=== PATIENT | female | born 1975 | race Asian ===

== ENCOUNTER 2016-07-29 16:14 | Emergency (ER) | payer OTHER ==
[2016-07-29 16:20] VITALS: BP 120/83; PULSE 88; TEMP 98.2; BMI 24.5
--- NOTE | 2016-07-29 16:22 | PDOC ---
Rapid Medical Evaluation Chief Complaint: Pain Time Seen by Provider: 07/29/16 16:18 Medical Evaluation: Allergies Allergy/AdvReac Type Severity Reaction Status Date / Time No Known Drug Allergies Allergy Verified 07/29/16 16:17 Vital Signs Temp Pulse Resp BP Pulse Ox 98.2 F 88 18 120/83 100 07/29/16 16:18 07/29/16 16:18 07/29/16 16:18 07/29/16 16:18 07/29/16 16:18 07/29/16 16:21 RME Note: I have performed a brief, in-person evaluation of this patient . This patient presents with CC: abd pain Pertinent PE findings are:; VSS I have ordered: labs The patient will proceed to ED for further evaluation. JR
--- NOTE | 2016-07-29 17:21 | PDOC ---
[id number] - General Chief Complaint: Pain Stated Complaint: ABD PAIN Time Seen by Provider: 07/29/16 16:18 Past History - Past Medical History Anemia: No Asthma: No Cancer: No Cardiac Disorders: No CVA: No COPD: No CHF: No Dementia: No Diabetes: No GI Disorders: Yes (fistula SBO) Disorders: No HTN: No Hypercholesterolemia: No Liver Disease: No Suicide Attempt (Hx): No Seizures: No Thyroid Disease: No - Surgical History Abdominal Surgery: Yes (? UNSURE FOR SBO) Appendectomy: No Cardiac Surgery: No Cholecystectomy: No Lung Surgery: No Neurologic Surgery: No Orthopedic Surgery: No - Reproductive History Is Patient Now?: No (#): 4 Para: 1 Spontaneous : 3 - Immunization History Immunization Up to Date: Yes - Psycho/Social/Smoking Cessation Hx Anxiety: No Suicidal Ideation: No Smoking Status: No Smoking History: Never smoked Have you smoked in the past 12 months: No Number of Cigarettes Smoked Daily: 0 Information on smoking cessation initiated: No Hx Alcohol Use: No Drug/Substance Use Hx: No Substance Use Type: None Hx Substance Use Treatment: No <Maryann Hess - Last Filed: 08/05/16 18:40> <Kapil Sam - Last Filed: 08/06/16 09:07> - Past Medical History Allergies/Adverse Reactions: Allergies Allergy/AdvReac Type Severity Reaction Status Date / Time No Known Drug Allergies Allergy Verified 07/29/16 16:17 Home Medications: Ambulatory Orders Medroxyprogesterone Acetate 2.5 mg PO HS 07/29/16 Abd/GI Specific PMHX - Complaint Specific PMHX GERD: No GI Ulcer Disease: No <Maryann Hess - Last Filed: 08/05/16 18:40> *Physical Exam - Vital Signs Last Vital Signs Temp Pulse Resp BP Pulse Ox 98.2 F 88 18 120/83 100 07/29/16 16:18 07/29/16 16:18 07/29/16 16:18 07/29/16 16:18 07/29/16 16:18 - Physical Exam General Appearance: Yes: Appropriately Dressed. No: Apparent Distress HEENT: positive: Normal Voice Neck: positive: Supple Respiratory/Chest: negative: Respiratory Distress Gastrointestinal/Abdominal: positive: Normal Bowel Sounds, Tender (to LUQ/LLQ and L lower back), Soft. negative: Distended, Guarding, Rebound Musculoskeletal: negative: CVA Tenderness Integumentary: positive: Dry, Warm Neurologic: positive: Fully Oriented, Alert, Normal Mood/Affect <Maryann Hess - Last Filed: 08/05/16 18:40> - Vital Signs Last Vital Signs Temp Pulse Resp BP Pulse Ox 98.2 F 88 18 120/83 100 07/29/16 16:18 07/29/16 16:18 07/29/16 16:18 07/29/16 16:18 07/29/16 16:18 <Kapil Sam - Last Filed: 08/06/16 09:07> ED Treatment Course - LABORATORY CBC & Chemistry Diagram: 07/29/16 17:10 07/29/16 17:10 - RADIOLOGY Radiology Studies Ordered: Category Date Time Status ABDOMEN & PELVIS CT WITH CONTR [CT] Stat CT Scan 07/29/16 17:13 Ordered <Maryann Hess - Last Filed: 08/05/16 18:40> - LABORATORY CBC & Chemistry Diagram: 07/29/16 17:10 07/29/16 17:10 - ADDITIONAL ORDERS Additional order review: 07/29/16 17:10 RBC 4.33 MCV 85.8 MCHC 34.5 RDW 13.8 MPV 8.4 Neutrophils % 62.8 Lymphocytes % 25.0 Monocytes % 6.4 Eosinophils % 4.8 H D Basophils % 1.0 - Medications Given in the ED: ED Medications Discontinued Medications Generic Name Dose Route Start Last Admin Trade Name Beverly PRN Reason Stop Dose Admin Morphine Sulfate 2 mg 07/29/16 17:32 07/29/16 17:38 Morphine Injection - IVPUSH 07/29/16 17:33 2 mg ONCE ONE Administration <Kapil Sam - Last Filed: 08/06/16 09:07> Medical Decision Making - Medical Decision Making 07/29/16 17:14 40 yo F, s/p bowel perf during ectopic surgery in 2011 at [facility], no issues to date, currently on medroxyprogesterone for irreg menses per pt, was told she was not in menopause by 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 States pain located to left upper and lower quadrant and also left lower back. Describes pain as sharp and mostly constant with intensity of 8/10, minimally relief with Tylenol. States she noticed pain after staring medroxyprogesterone 3days ago. Denies change in bowel movements, dysuria, hematuria, nausea, vomiting, fever or chills. No history of similar pain. See exam L sided abd pain Started after new meds for irreg menses Stable w/ minimal ttp to multiple sites of abd Pain possibly SE of new meds but given complicated surgery in past, will r/o serious pathology -pain control -labs -CT 07/29/16 17:31 07/29/16 17:32 <Maryann Hess - Last Filed: 08/05/16 18:40> - Medical Decision Making 08/06/16 09:07 The patient was seen and evaluated in conjunction with TRUMAN Bennett under my direct supervision, ancillary studies were reviewed. I agree with the plan as outlined by TRUMAN Hess . <Kapil Sam - Last Filed: 08/06/16 09:07> *DC/Admit/Observation/Transfer <Maryann Hess - Last Filed: 08/05/16 18:40> <Kapil Sam - Last Filed: 08/06/16 09:07> Diagnosis at time of Disposition: Abdominal pain Qualifiers: Abdominal location: left lower quadrant Qualified Code(s): R10.32 - Left lower quadrant pain - Discharge Dispostion Disposition: HOME Condition at time of disposition: Improved - Referrals Referrals: Freddy Alvarenga MD [Staff Physician] - Niki Deleon MD [Primary Care Provider] - - Patient Instructions Printed Discharge Instructions: DI for Abdominal Pain-Adult Additional Instructions: Discharge Instructions: -Your CT scan of your abdomen showed no acute abnormalities. -Take Motrin or tylenol for pain if needed -Follow up with Dr. Deleon and Dr. Alvarenga within 1 week if symptoms continue -Return to the ER with any worsening or concerning symptoms
[2016-07-29 17:23] LABS: EOSINOPHIL 4.8 % (0-4.5); MCH 29.6 pg (25.7-33.7); MCHC 34.5 g/dl (32.0-36.0); MEAN CELL VOLUME 85.8 fl (80-96); MEAN PLT VOLUME 8.4 fl (7.5-11.1); NEUTROPHILS 62.8 % (42.8-82.8); PLATELET COUNT 354 K/MM3 (134-434); RDW 13.8 % (11.6-15.6); WHITE BLOOD COUNT 10.6 K/mm3 (4.0-10.0)
[2016-07-29 17:25] LABS: URINE APPEARANCE SLCLOUDY; URINE BILIRUBIN NEGATIVE (NEGATIVE); URINE BLOOD NEGATIVE (NEGATIVE); URINE COLOR YELLOW; URINE GLUCOSE (UA) NEGATIVE (NEGATIVE); URINE KETONE TRACE (NEGATIVE); URINE NITRITE NEGATIVE (NEGATIVE); URINE PROTEIN NEGATIVE (NEGATIVE); URINE UROBILINOGEN NEGATIVE E.U./dl (0.2-1.0)
[2016-07-29] MEDS ORDERED: morphine CARPU-JECT 4 MG/1 ML DISP.SYRIN IVPUSH ONE (17:32)
[2016-07-29] MEDS ORDERED: morphine CARPU-JECT 2 MG/1 ML DISP.SYRIN ONE (17:35)
[2016-07-29 17:43] LABS: URINE LEUK ESTERASE 1+ (NEGATIVE)
[2016-07-29 17:51] LABS: ALBUMIN 4.2 g/dl (3.4-5.0); ANION GAP 9 (8-16); CALCIUM 9.2 mg/dL (8.5-10.1); CO2 28 mmol/L (21-32); CREATININE 0.9 mg/dL (0.55-1.02); GLUCOSE,RANDOM 106 mg/dL (74-106); SGOT/AST 15 U/L (15-37); SGPT/ALT 30 U/L (12-78)
[2016-07-29 17:53] LABS: ALK PHOS 59 U/L (45-117); BILIRUBIN,TOTAL 0.2 mg/dL (0.2-1.0); TOT PROT 7.6 g/dl (6.4-8.2)
[2016-07-29 17:58] LABS: URINE MUCUS RARE; URINE RBC 2 /hpf (0-3); URINE WBC 13 /hpf (3-5)
--- NOTE | 2016-07-29 19:17 | PDOC ---
[id number]9CnZXLMVQNBYBVNQO1HLVGObQUEEp6jOFYQrvgNGNPMkK RsZQAAeJxztooJKMpPL0 eBlAcjEQhpXM3PGIzWhyfAsoJ3LiJIvnpwJg8aAs1VdcZP4/ MYo7TYI8xOQ85XgTbWEI7NSAyVVIeZRXdnLLO36sQmZLF7ZUJ9IFVyCRMzkmI35XfZGMEWLiKpahC9M0 NGDHWcrpCVmXEjCuP6HPRpFUI7bUPMFQlFsHrISXvX7GW58XxvrkASCBP3Vfv2vJctXNHWyNyZRVH9bE CsWHRHPTuJYptCyvr9g +baV7fDYfCbOkKypI2Eh2NvNvHa0VDfATNsemR3b4J0N3/ pWhVDsL194QSyulZ7aTgX9BtDzNZU7iEqVtUcwi3TFIkcdDVYJVKOVxODDk5p9tlgebVikCSZctm23s9 uK71rNyltqtRCyiqH4ZJvCsrCiqsQcyXcyHwPxQ6ZLz2VSfTn66Ae2u +VCjXrdVSnYqdsMTmHjEpprQMIFSYaj7Isv3LEr2TEtUJAC3N/5UBWM7Fn+ ag4v7wV6uySqNbSt8KLOzTNKHl8rf9pbspXxoYe1lAEXNSIVPhBubDgMUE9kKqaM/o86xEvTT+ Xu9SLZhgoV5XwBb2yRZrKN8vLW3zrfAwjw7gq4h3EfUAPzpZAJ3LBChSxa2p6MGsgf9VMKhSuon7D8zR NPD115hAXaDG7FnLtNHDdB8a81o00xdTmcZgyBrsT0pXLnuU8aEiMLUygvkA4TPtk7Bgtpd4F7b7Ixx KwsjcISDFb26O4b0Mp0ZnyUTyo4lpRF8HPRIFPi3zE+fxxR3qzoZetS0YH3CM43CQn8bw1fwee3k/ v3tIsyRzri6HZTnK1Hl8eZJkwUxUNr8t7qXb6BuN9beWKwLkl31PN/ GlO6CfkTQwztWCz6zkX120L0MqeUfm8rwm7mNjwZYO4P4Kn6iL8h7P/72yyPTfRcvi5APg+ XDjetThzNKOEUg8z+dmdMIMP5TW8214oTFYsNOqQaKP18Zs9phUQpBf0j4PR73/ uWmtWEDItcUEGxzkOOX7hwkPjMGJTAP4LWLSB3tZBWDu4YW+lx8s+J3XSyhh1SwGQ+gP+UR/ SiXRfEYASYDROVN9GjlCtkc== 07/29/16 17:10 - ADDITIONAL ORDERS Additional order review: Laboratory Results 07/29/16 07/29/16 07/29/16 17:10 17:10 17:10 Sodium 139 Potassium 4.2 Chloride 102 Carbon Dioxide 28 Anion Gap 9 BUN 18 D Creatinine 0.9 D Creat Clearance w eGFR > 60 Random Glucose 106 Calcium 9.2 Total Bilirubin 0.2 D AST 15 D ALT 30 D Alkaline Phosphatase 59 Total Protein 7.6 Albumin 4.2 Lipase 185 Urine Color Yellow Urine Appearance Slcloudy Urine pH 5.0 Ur Specific [place] 1.029 Urine Protein Negative Urine Glucose (UA) Negative Urine Ketones Trace H Urine Blood Negative Urine Nitrite Negative Urine Bilirubin Negative Urine Urobilinogen Negative Ur Leukocyte Esterase 1+ H Urine RBC 2 Urine WBC 13 Ur Epithelial Cells Moderate Urine Mucus Rare Urine HCG, Qual Negative 07/29/16 17:10 RBC 4.33 MCV 85.8 MCHC 34.5 RDW 13.8 MPV 8.4 Neutrophils % 62.8 Lymphocytes % 25.0 Monocytes % 6.4 Eosinophils % 4.8 H D Basophils % 1.0 - Medications Given in the ED: ED Medications Discontinued Medications Generic Name Dose Route Start Last Admin Trade Name Freq PRN Reason Stop Dose Admin Morphine Sulfate 2 mg 07/29/16 17:32 07/29/16 17:38 Morphine Injection - IVPUSH 07/29/16 17:33 2 mg ONCE ONE Administration <Pauilne Sawnn - Last Filed: 07/29/16 20:26> - LABORATORY CBC & Chemistry Diagram: 07/29/16 17:10 07/29/16 17:10 - ADDITIONAL ORDERS Additional order review: 07/29/16 17:10 RBC 4.33 MCV 85.8 MCHC 34.5 RDW 13.8 MPV 8.4 Neutrophils % 62.8 Lymphocytes % 25.0 Monocytes % 6.4 Eosinophils % 4.8 H D Basophils % 1.0 - Medications Given in the ED: ED Medications Discontinued Medications Generic Name Dose Route Start Last Admin Trade Name Beverly PRN Reason Stop Dose Admin Morphine Sulfate 2 mg 07/29/16 17:32 07/29/16 17:38 Morphine Injection - IVPUSH 07/29/16 17:33 2 mg ONCE ONE Administration <Kapil Sam - Last Filed: 08/03/16 08:50> Progress Note - Progress Note Progress Note: I have received report from TRUMAN Quintero regarding this patient. Pt's initial chief complaint: left sided abd pain Pt's work up completed prior to sign out: labs, UA, hcg Pt treatment given from prior staff: IV morphine Pt plan to be completed: CT scan abd/pelvis Dispo: Pending <Pauline Swann - Last Filed: 07/29/16 20:26> Medical Decision Making - Medical Decision Making A/P: 40 y/o afebrile female with PMH bowel perf 2012 c/o left sided abd pain. The patient was initially assessed by TRUMAN Quintero. Labs unremarkable. Awaiting CT scan of abd/pelvis. If CT scan is normal will discharge to home. CT scan abd/pelvis IMPRESSION: No evidence of diverticulitis. Appendix not completely visualized. Right ovarian cyst. Left ovary unremarkable. Gave patient her results. Will discharge to home with instructions to take Motrin or tylenol for pain and f/u with her doctor tomorrow. Also gave referral to GI doctor. Pt instructed to return to the ER with any worsening or concerning symptoms. The patient verbalizes understanding of all instructions, has no further questions and is awaiting discharge. <Pauline Swann - Last Filed: 07/29/16 20:26> - Medical Decision Making The patient was seen and evaluated in conjunction with TRUMAN Swann under my direct supervision, ancillary studies were reviewed. I agree with the plan as outlined by TRUMAN Swann . <Kapil Sam - Last Filed: 08/03/16 08:50> *DC/Admit/Observation/Transfer <Pauline Swann - Last Filed: 07/29/16 20:26> <Kapil Sam - Last Filed: 08/03/16 08:50> Diagnosis at time of Disposition: Abdominal pain Qualifiers: Abdominal location: left lower quadrant Qualified Code(s): R10.32 - Left lower quadrant pain - Discharge Dispostion Disposition: HOME Condition at time of disposition: Improved - Referrals Referrals: Niki Deleon MD [Primary Care Provider] - Freddy Alvarenga MD [Staff Physician] - - Patient Instructions Printed Discharge Instructions: DI for Abdominal Pain-Adult Additional Instructions: Discharge Instructions: -Your CT scan of your abdomen showed no acute abnormalities. -Take Motrin or tylenol for pain if needed -Follow up with Dr. Deleon and Dr. Alvarenga within 1 week if symptoms continue -Return to the ER with any worsening or concerning symptoms
== END 2016-07-29 20:51 | disposition home or self-care (01) ==
LOC: JER 16:14
PROC: 3E033NZ Introduction of Analgesics, Hypnotics, Sedatives into Peripheral Vein, Percutaneous Approach (ICD-10-PCS; principal; 2016-07-29)
DX: R10.32 Left lower quadrant pain (principal); N92.5 Other specified irregular menstruation
CPT/HCPCS: 36415; 74177-TC; 80053; 81003; 81015; 83690; 84703; 85025; 96374; 99285-25

== ENCOUNTER 2017-06-11 15:26 | Emergency (ER) | payer OTHER ==
[2017-06-11 15:32] VITALS: BP 122/100; PULSE 86; TEMP 98.3; BMI 24.9
--- NOTE | 2017-06-11 15:34 | PDOC ---
Rapid Medical Evaluation Time Seen by Provider: 06/11/17 15:28 Medical Evaluation: Allergies Allergy/AdvReac Type Severity Reaction Status Date / Time No Known Drug Allergies Allergy Verified 07/29/16 16:17 06/11/17 15:28 I have performed a brief in-person evaluation of this patient. The patient presents with a chief complaint of: left flank pain radiating to left abdomen Pertinent physical exam findings: M/S: left CVAT ABD: TTP LLQ I have ordered the following: UA, urine cx, CBC, CMP, upreg The patient will proceed to the ED for further evaluation. Discharge Disposition - Diagnosis Abdominal pain - Referrals Referrals: Niki Deleon MD [Primary Care Provider] - - Patient Instructions - Post Discharge Activity
[2017-06-11 16:13] LABS: BASO % 1.3 % (0-2.0); EOS % 5.9 % (0-4.5); HEMATOCRIT 37.3 % (32.4-45.2); HEMOGLOBIN 12.5 GM/dL (10.7-15.3); LYMPH % 33.1 % (8-40); MCH 28.9 pg (25.7-33.7); MCHC 33.5 g/dl (32.0-36.0); MEAN CELL VOLUME 86.5 fl (80-96); MEAN PLT VOLUME 8.2 fl (7.5-11.1); MONO % 9.4 % (3.8-10.2); NEUT % 50.3 % (42.8-82.8); PLATELET COUNT 352 K/MM3 (134-434); RBC 4.32 M/mm3 (3.60-5.2); RDW 13.6 % (11.6-15.6); WHITE BLOOD COUNT 7.7 K/mm3 (4.0-10.0)
[2017-06-11 16:21] LABS: ALK PHOS 57 U/L (45-117); ANION GAP 7 (8-16); BILIRUBIN,TOTAL 0.3 mg/dL (0.2-1.0); BLOOD UREA NITROGEN 14 mg/dL (7-18); CALCIUM 8.6 mg/dL (8.5-10.1); CHLORIDE 105 mmol/L (98-107); CO2 27 mmol/L (21-32); CREATININE 0.6 mg/dL (0.55-1.02); GLUCOSE,RANDOM 87 mg/dL (74-106); HCG,QUALITATIVE URINE NEGATIVE; LIPASE 140 U/L (73-393); POTASSIUM 4.5 mmol/L (3.5-5.1); SGOT/AST 12 U/L (15-37); SGPT/ALT 24 U/L (12-78); SODIUM 139 mmol/L (136-145); TOT PROT 7.8 g/dl (6.4-8.2); URINE APPEARANCE CLEAR; URINE BILIRUBIN NEGATIVE (NEGATIVE); URINE BLOOD NEGATIVE (NEGATIVE); URINE COLOR STRAW; URINE GLUCOSE (UA) NEGATIVE (NEGATIVE); URINE KETONE NEGATIVE (NEGATIVE); URINE LEUK ESTERASE NEGATIVE (NEGATIVE); URINE NITRITE NEGATIVE (NEGATIVE); URINE PROTEIN NEGATIVE (NEGATIVE); URINE UROBILINOGEN NEGATIVE mg/dL (0.2-1.0)
[2017-06-11] MEDS ORDERED: KETOROLAC TROMETHAMINE 30 MG/1 ML VIAL IM ONE (16:24)
[2017-06-11] MEDS ORDERED: KETOROLAC TROMETHAMINE 30 MG/1 ML VIAL ONE (20:28)
--- NOTE | 2017-06-11 20:47 | PDOC ---
History of Present Illness - General Chief Complaint: Pain Stated Complaint: ABD PAIN Time Seen by Provider: 06/11/17 15:28 - History of Present Illness Initial Comments: 06/11/17 20:42 CHIEF COMPLAINT: L abdominal pain HISTORY OF PRESENT ILLNESS: 41 yo F with hx of 2 ectopic surgeries (2006, 2011) and R salpingectomy complicated with small bowel perforation, presents to ED with left sided abdominal pain x 1 week. Patient reports the pain initially was L flank pain but today the pain "has moved to the front" and moves up and down between LUQ and LLQ. Patient denies any nausea, vomiting, diarrhea and reports that her last LMP was in March but she has irregular menses at baseline and her test completed last week was negative. PAST MEDICAL HISTORY: Denies past medical history FAMILY HISTORY: Denies SOCIAL HISTORY: Denies tobacco, alcohol, illicit drug use. SURGICAL HISTORY: Denies ALLERGIES: No known drug allergies REVIEW OF SYSTEMS General/Constitutional: Denies fever or chills. Denies weakness, weight change. HEENT: Denies change in vision. Denies ear pain or discharge. Denies sore throat. Cardiovascular: Denies chest pain or shortness of breath. Respiratory: Denies cough, wheezing, or hemoptysis. Gastrointestinal: LUQ and LLQ abdominal pain. Denies nausea, vomiting, diarrhea or constipation. Denies rectal bleeding. Genitourinary: Denies dysuria, frequency, or change in urination. Musculoskeletal: Denies joint or muscle swelling or pain. Denies neck or back pain. Skin and breasts: Denies rash or easy bruising. PHYSICAL EXAM General Appearance: Well-appearing, appropriately dressed. No apparent distress. HEENT: EOMI, PERRLA, normal ENT inspection, normal voice, TMs normal, pharynx normal. No conjunctival pallor. No photophobia, scleral icterus. Respiratory/Chest: Lungs CTAB. Cardiovascular: RRR. S1, S2. Gastrointestinal/Abdominal: Tenderness to LUQ and LLQ. Abdomen soft, non- distended. No tenderness or rebound tenderness. No organomegaly, pulsatile mass, guarding, hernia, hepatomegaly, splenomegaly. Lymphatic: No adenopathy, tenderness. Musculoskeletal/Extremities: Normal inspection. FROM of all extremities, normal capillary refill. Pelvis Stable. No CVA tenderness. No tenderness to extremities, pedal edema, swelling, erythema or deformity. Integumentary: Appropriate color, dry, warm. No cyanosis, erythema, jaundice or rash Neurologic: stogie packer II-XII intact. Fully oriented, alert. Appropriate mood/affect. Motor strength 5/5. No appreciable EOM palsy, facial droop or sensory deficit. 06/11/17 21:35 Past History - Past Medical History Allergies/Adverse Reactions: Allergies Allergy/AdvReac Type Severity Reaction Status Date / Time No Known Drug Allergies Allergy Verified 06/11/17 15:31 Home Medications: Ambulatory Orders Medroxyprogesterone Acetate 2.5 mg PO HS 07/29/16 Psyllium Husk [Metamucil] 0.4 gm PO ASDIR #21 capsule 06/11/17 Anemia: No Asthma: No Cancer: No Cardiac Disorders: No CVA: No COPD: No CHF: No DVT: No Dementia: No Diabetes: No GI Disorders: Yes (fistula SBO) Disorders: No HTN: No Hypercholesterolemia: No Liver Disease: No Seizures: No Thyroid Disease: No - Surgical History Abdominal Surgery: Yes (ECTOPIC PREG) Appendectomy: No Cardiac Surgery: No Cholecystectomy: No Lung Surgery: No Neurologic Surgery: No Orthopedic Surgery: No - Reproductive History (#): 4 Para: 1 Spontaneous : 3 - Immunization History Immunization Up to Date: Yes - Suicide/Smoking/Psychosocial Hx Smoking Status: No Smoking History: Never smoked Have you smoked in the past 12 months: No Number of Cigarettes Smoked Daily: 0 Hx Alcohol Use: No Drug/Substance Use Hx: No Substance Use Type: None Hx Substance Use Treatment: No Abd/GI Specific PMHX - Complaint Specific PMHX GERD: No GI Ulcer Disease: No *Physical Exam - Vital Signs Last Vital Signs Temp Pulse Resp BP Pulse Ox 98.3 F 86 20 122/100 100 06/11/17 15:28 06/11/17 15:28 06/11/17 15:28 06/11/17 15:28 06/11/17 15:28 ED Treatment Course - LABORATORY CBC & Chemistry Diagram: 06/11/17 15:50 06/11/17 15:50 - ADDITIONAL ORDERS Additional order review: Laboratory Results 06/11/17 06/11/17 15:50 15:50 Sodium 139 Potassium 4.5 Chloride 105 Carbon Dioxide 27 Anion Gap 7 L BUN 14 Creatinine 0.6 Creat Clearance w eGFR > 60 Random Glucose 87 Calcium 8.6 Total Bilirubin 0.3 D AST 12 L ALT 24 Alkaline Phosphatase 57 Total Protein 7.8 Albumin 4.0 Lipase 140 Urine Color Straw Urine Appearance Clear Urine pH 6.0 Ur Specific [place] 1.011 Urine Protein Negative Urine Glucose (UA) Negative Urine Ketones Negative Urine Blood Negative Urine Nitrite Negative Urine Bilirubin Negative Urine Urobilinogen Negative Ur Leukocyte Esterase Negative Urine HCG, Qual Negative 06/11/17 15:50 RBC 4.32 MCV 86.5 MCHC 33.5 RDW 13.6 MPV 8.2 Neutrophils % 50.3 Lymphocytes % 33.1 D Monocytes % 9.4 Eosinophils % 5.9 H Basophils % 1.3 - Medications Given in the ED: ED Medications Discontinued Medications Generic Name Dose Route Start Last Admin Trade Name Efrainq PRN Reason Stop Dose Admin Ketorolac Tromethamine 30 mg 06/11/17 16:24 06/11/17 20:34 Toradol Injection - IM 06/11/17 16:25 30 mg ONCE ONE Administration Medical Decision Making - Medical Decision Making 06/11/17 20:46 41 yo F with hx of 2 ectopic surgeries (2006, 2011) and R salpingectomy complicated with small bowel perforation, presents to ED with left sided abdominal pain x 1 week. -CBC, CMP, lipase -UA, UCx -Toradol IM given for pain Labs and urine all WNL. Will CT abdomen with IV and oral contrast r/o bowel perf. CT positive for L sided diverticulosis without acute diverticulitis. Will rx cipro and flagyl with close f/u with GI. Advised patient to take medication as prescribed and follow up with GI this week. Advised patient of signs and symptoms for return to ED. Patient verbalized understanding and agrees to plan. *DC/Admit/Observation/Transfer Diagnosis at time of Disposition: Abdominal pain Qualifiers: Abdominal location: left upper quadrant Qualified Code(s): R10.12 - Left upper quadrant pain Diverticulosis Qualifiers: Diverticulosis site: unspecified location Diverticulosis bleeding: diverticulosis without bleeding Qualified Code(s): K57.90 - Diverticulosis of intestine, part unspecified, without perforation or abscess without bleeding - Discharge Dispostion Disposition: HOME Condition at time of disposition: Stable Admit: No - Prescriptions Prescriptions: Psyllium Husk [Metamucil] 0.4 gm PO ASDIR #21 capsule - Referrals Referrals: Niki Deleon MD [Primary Care Provider] - Mauricio Chairez DO [Staff Physician] - - Patient Instructions Printed Discharge Instructions: DI for Diverticulosis Additional Instructions: Please take medications as prescribed. Follow up with gastroenterology within the next week for further evaluation and continued management of your diverticulosis. If you develop fever, chills, vomiting, diarrhea, or any new or worsening symptoms, please return to the ER. - Post Discharge Activity
--- NOTE | 2017-06-11 22:13 | PDOC ---
*Physical Exam - Vital Signs Last Vital Signs Temp Pulse Resp BP Pulse Ox 98.3 F 86 20 122/100 100 06/11/17 15:28 06/11/17 15:28 06/11/17 15:28 06/11/17 15:28 06/11/17 15:28 ED Treatment Course - LABORATORY CBC & Chemistry Diagram: 06/11/17 15:50 06/11/17 15:50 - ADDITIONAL ORDERS Additional order review: Laboratory Results 06/11/17 06/11/17 15:50 15:50 Sodium 139 Potassium 4.5 Chloride 105 Carbon Dioxide 27 Anion Gap 7 L BUN 14 Creatinine 0.6 Creat Clearance w eGFR > 60 Random Glucose 87 Calcium 8.6 Total Bilirubin 0.3 D AST 12 L ALT 24 Alkaline Phosphatase 57 Total Protein 7.8 Albumin 4.0 Lipase 140 Urine Color Straw Urine Appearance Clear Urine pH 6.0 Ur Specific [place] 1.011 Urine Protein Negative Urine Glucose (UA) Negative Urine Ketones Negative Urine Blood Negative Urine Nitrite Negative Urine Bilirubin Negative Urine Urobilinogen Negative Ur Leukocyte Esterase Negative Urine HCG, Qual Negative 06/11/17 15:50 RBC 4.32 MCV 86.5 MCHC 33.5 RDW 13.6 MPV 8.2 Neutrophils % 50.3 Lymphocytes % 33.1 D Monocytes % 9.4 Eosinophils % 5.9 H Basophils % 1.3 - Medications Given in the ED: ED Medications Discontinued Medications Generic Name Dose Route Start Last Admin Trade Name Freq PRN Reason Stop Dose Admin Ketorolac Tromethamine 30 mg 06/11/17 16:24 06/11/17 20:34 Toradol Injection - IM 06/11/17 16:25 30 mg ONCE ONE Administration Medical Decision Making - Medical Decision Making 06/11/17 22:13 agree with care from BRAYAN Cassidy *DC/Admit/Observation/Transfer Diagnosis at time of Disposition: Abdominal pain - Referrals Referrals: Nkii Deleon MD [Primary Care Provider] - - Patient Instructions - Post Discharge Activity
== END 2017-06-11 23:51 | disposition home or self-care (01) ==
LOC: JER 15:26
PROC: 3E0233Z Introduction of Anti-inflammatory into Muscle, Percutaneous Approach (ICD-10-PCS; principal; 2017-06-11)
DX: K57.90 Diverticulosis of intestine, part unspecified, without perforation or abscess without bleeding (principal); Z87.19 Personal history of other diseases of the digestive system
CPT/HCPCS: 36415; 74177-TC; 80053; 81003; 83690; 84703; 85025; 87086; 99282-25; Q9967

== ENCOUNTER 2017-10-02 10:06 | Emergency (ER) | payer OTHER ==
[2017-10-02 10:13] VITALS: BP 112/74; PULSE 75; TEMP 98.6; BMI 23.0
[2017-10-02] MEDS ORDERED: KETOROLAC TROMETHAMINE 60 MG/2 ML VIAL IM ONE (10:48)
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
[2017-10-02] MEDS ORDERED: KETOROLAC TROMETHAMINE 60 MG/2 ML VIAL ONE (10:50)
== END 2017-10-02 11:13 | disposition home or self-care (01) ==
LOC: JERFT 10:06
PROC: 3E0233Z Introduction of Anti-inflammatory into Muscle, Percutaneous Approach (ICD-10-PCS; principal; 2017-10-02)
DX: S16.1XXA Strain of muscle, fascia and tendon at neck level, initial encounter (principal); X50.1XXA Overexertion from prolonged static or awkward postures, initial encounter; Y93.89 Activity, other specified; Y92.89 Other specified places as the place of occurrence of the external cause; Y99.8 Other external cause status
CPT/HCPCS: 99281-25

== ENCOUNTER 2018-03-10 12:09 | Emergency (ER) | payer SELFPAY ==
[2018-03-10 12:24] VITALS: BP 153/95; PULSE 95; TEMP 98.8; BMI 22.1
[2018-03-10] MEDS ORDERED: ACETAMINOPHEN 500 MG TABLET (FP) PO ONE (12:41)
[2018-03-10] MEDS ORDERED: ACETAMINOPHEN 500 MG TABLET (FP) ONE (12:49)
--- NOTE | 2018-03-10 13:01 | PDOC ---
History of Present Illness - General Chief Complaint: Sore Throat Stated Complaint: SORE THROAT Time Seen by Provider: 03/10/18 12:36 - History of Present Illness Initial Comments: 03/10/18 13:00 42-year-old female without comorbidities presents for evaluation of sore throat bodyaches and fever 5 days. Past History - Past Medical History Allergies/Adverse Reactions: Allergies Allergy/AdvReac Type Severity Reaction Status Date / Time No Known Drug Allergies Allergy Verified 03/10/18 12:20 Home Medications: Ambulatory Orders NK [No Known Home Medication] 12/23/17 Anemia: No Asthma: No Cancer: No Cardiac Disorders: No CVA: No COPD: No CHF: No DVT: No Dementia: No Diabetes: No GI Disorders: Yes (fistula SBO) Disorders: No HTN: No Hypercholesterolemia: No Liver Disease: No Seizures: No Thyroid Disease: No - Surgical History Abdominal Surgery: Yes (ECTOPIC PREG) Appendectomy: No Cardiac Surgery: No Cholecystectomy: No Lung Surgery: No Neurologic Surgery: No Orthopedic Surgery: No - Reproductive History (#): 4 Para: 1 Spontaneous : 3 - Immunization History Immunization Up to Date: Yes - Suicide/Smoking/Psychosocial Hx Smoking Status: No Smoking History: Never smoked Have you smoked in the past 12 months: No Number of Cigarettes Smoked Daily: 0 Hx Alcohol Use: No Drug/Substance Use Hx: No Substance Use Type: None Hx Substance Use Treatment: No Review of Systems - Review of Systems Constitutional: Yes: Fever, Malaise HEENTM: Yes: Throat Pain All Other Systems: Reviewed and Negative *Physical Exam - Vital Signs Last Vital Signs Temp Pulse Resp BP Pulse Ox 98.8 F 95 H 16 153/95 100 03/10/18 12:20 03/10/18 12:20 03/10/18 12:20 03/10/18 12:20 03/10/18 12:20 - Physical Exam Comments: HEAD: NC/AT EYES: Conjuntiva clear Ears: Canals and TM's normal NOSE: No d/c THROAT: Moist mucous membrances, oral pharanx erythematous, uvula midline NECK: Supple without adenopathy CARDIAC: S1 S2 LUNGS: CTA Full and Equal breath sounds ABDOMEN: Soft NT ND MS: Full ROM in all joints without edema NEUROLOGIC: No gross sensory or motor deficits, NVID SKIN: Normal color and temperature no lesions or rashes 03/10/18 13:01 ED Treatment Course - Medications Given in the ED: ED Medications Discontinued Medications Generic Name Dose Route Start Last Admin Trade Name Beverly PRN Reason Stop Dose Admin Acetaminophen 1,000 mg 03/10/18 12:41 03/10/18 12:52 Tylenol - PO 03/10/18 12:42 1,000 mg ONCE ONE Administration *DC/Admit/Observation/Transfer Diagnosis at time of Disposition: Viral laryngitis - Discharge Dispostion Disposition: HOME Condition at time of disposition: Stable Decision to Admit order: No - Referrals Referrals: Niki Deleon MD [Primary Care Provider] - - Patient Instructions Printed Discharge Instructions: Laryngitis, DI for Laryngitis Additional Instructions: All of the primary care physician in one to 2 days for further evaluation and treatment options. Return to the emergency room should symptoms worsen or go unresolved. Tylenol and Motrin as directed for pain and fever. Warm saltwater gargles 5-6 times a day for pain and your throat. - Post Discharge Activity Forms/Work/School Notes: Back to Work
== END 2018-03-10 13:44 | disposition home or self-care (01) ==
LOC: JERFT 12:09
DX: J05.0 Acute obstructive laryngitis [croup] (principal); B97.89 Other viral agents as the cause of diseases classified elsewhere
CPT/HCPCS: 87070; 87077; 87430; 87804; 99281-25

== ENCOUNTER 2018-04-23 12:47 | Emergency (ER) | payer OTHER ==
[2018-04-23 12:57] VITALS: BP 162/82; PULSE 89; TEMP 98.5; BMI 22.3
--- NOTE | 2018-04-23 13:29 | PDOC ---
Attending Attestation - HPI HPI: 04/23/18 17:32 The patient is a 42 year old female who presents with complaint of chronic headache for the past 3-4 months. She reports that she was seen previously in the ED with headaches and given ibuprofen, but the medication did not help. She states that initially, the headaches were just on one side, either the right or the left, but have more recently started to be bilateral and around to the back of her head. The headaches are associated with nausea at times. She has not seen her PMD or a neurologist since she was seen last in the ED. She denies CP, SOB, palpitations, visual changes. She denies fevers, chills, vomiting, diarrhea, or constipation. - Physicial Exam PE: 04/23/18 17:33 Agree with Resident PE. - Medical Decision Making 04/23/18 17:33 Documentation prepared by Ceci Phelps, acting as medical care administrator for Sofi Ruvalcaba MD <Ceci Phelps - Last Filed: 04/23/18 17:32> - Physicial Exam PE: 04/25/18 18:19 Agree with resident exam. Patient is alert and oriented and in no acute distress. Neurologically intact. - Medical Decision Making 04/25/18 18:20 PT presents to the ED complaining of daily headache for three weeks, slightly worse over the last two days. Minimal concern for subarachnoid bleed, but given the time frame of her symptoms, ct head checked to rule out intracranial mass and is negative. Labs are within normal limits. Patient feels improved after reglan. Will discharge home. 04/26/18 01:18 <Sofi Ruvalcaba - Last Filed: 04/26/18 01:21>
[2018-04-23] MEDS ORDERED: SODIUM CHLORIDE 0.9% 500 ML INFUS.BAG IV ONE (13:52)
[2018-04-23] MEDS ORDERED: METOCLOPRAMIDE HCL INJECTION 10 MG/2 ML VIAL IVPUSH ONE (13:52)
[2018-04-23] MEDS ORDERED: METOCLOPRAMIDE HCL INJECTION 10 MG/2 ML VIAL ONE (14:09)
--- NOTE | 2018-04-23 14:22 | PDOC ---
History of Present Illness - General Chief Complaint: Headache Stated Complaint: HEADACHE Time Seen by Provider: 04/23/18 13:26 - History of Present Illness Initial Comments: Ana Rosa Dc is an otherwise healthy 42yo woman who presents reporting chronic headache for the past 3-4 months. She reports that she was seen previously in the ED with headaches and given ibuprofen, but the medication did not help. Since that time, she has had continued headaches almost every day. She states that initially, the headches were just on one side, either the right or the left, but have more recently started at the b/l temples and around to the back of her head. The headaches are associated with nausea at times. She has not seen her PMD or a neurologist since she was seen last in the ED. Ms Dc reports that she has been taking acetaminophen 1000mg every 4 hours for pain most days. She also occasionally takes ibuprofen. These medications help occasionally, but the headaches always return after a few hours. She denies any trauma or injury prior to the headaches first starting, though she does note a concussion several years ago. Ms Dc states that she is worried there is a "blood clot" in her head from the previous concussion that is causing her headaches. However, she denies any focal weakness, facial droop, AMS or confusion, difficulty with speech, or focal numbness/tingling. She denies aura, photophobia, phonophobia, or vomiting associated with her headaches. She has not been lightheaded or had vertigo. She specifically states that the headaches start at the temples, but she has not noted sinus pressure, increased pain when leaning forward, rhinorrhea or nasal congestion, or post- nasal drip. Past History - Past Medical History Allergies/Adverse Reactions: Allergies Allergy/AdvReac Type Severity Reaction Status Date / Time No Known Drug Allergies Allergy Verified 04/23/18 12:52 Home Medications: Ambulatory Orders Clindamycin [Cleocin -] 300 mg PO TID #21 capsule 03/13/18 Ibuprofen 800 mg PO TID PRN #30 tablet 04/23/18 Anemia: No Asthma: No Cancer: No Cardiac Disorders: No CVA: No COPD: No CHF: No DVT: No Dementia: No Diabetes: No GI Disorders: Yes (fistula SBO) Disorders: No HTN: No Hypercholesterolemia: No Liver Disease: No Seizures: No Thyroid Disease: No - Surgical History Abdominal Surgery: Yes (ECTOPIC PREG) Appendectomy: No Cardiac Surgery: No Cholecystectomy: No Lung Surgery: No Neurologic Surgery: No Orthopedic Surgery: No - Reproductive History (#): 4 Para: 1 Spontaneous : 3 - Immunization History Immunization Up to Date: Yes - Suicide/Smoking/Psychosocial Hx Smoking Status: No Smoking History: Never smoked Have you smoked in the past 12 months: No Number of Cigarettes Smoked Daily: 0 Information on smoking cessation initiated: No Hx Alcohol Use: No Drug/Substance Use Hx: No Substance Use Type: None Hx Substance Use Treatment: No Review of Systems - Review of Systems Comments:: General: No fevers, no chills, no weight or appetite change, no malaise HEENT: No changes in vision, no changes in hearing, no congestion, no sore throat. See HPI CV: No chest pain, no palpitations, no LE edema Pulm: No SOB, no cough, no wheezing GI: No nausea or vomiting, no change in bowel habits, no melena : No frequency, no urgency, no dysuria Musc: No back pain, no joint swelling, no recent injury Skin: No rash, no lesions, no erythema Endo: No excessive thirst, no heat/cold intolerance Heme: No unusual bruising or bleeding, no swollen glands Neuro: No syncope, no numbness/tingling, no focal weakness Vasc: No claudication Psych: No recent change in mood, no SI or HI *Physical Exam - Vital Signs Last Vital Signs Temp Pulse Resp BP Pulse Ox 98.5 F 89 16 162/82 100 04/23/18 12:53 04/23/18 12:53 04/23/18 12:53 04/23/18 12:53 04/23/18 12:53 - Physical Exam Comments: General: Comfortable, no acute distress HEENT: PERRL, EOMI, MMM, voice normal, normal neck ROM, no LAD. No sinus tenderness. No sign of trauma or injury. Cards: RRR, no murmur appreciated Pulm: Comfortable on room air, clear to auscultation bilaterally Abd: Soft, nontender, nondistended : No CVA tenderness Ext: Atraumatic. No LE edema. ROM intact. Strength 5/5 and equal bilaterally Vasc: Extremities WWP. Palpable radial pulses bilaterally Skin: Normal color, no rashes or lesions Neuro: A&Ox3, CN grossly intact, normal speech, motor/sensory grossly intact and symmetric Psych: Mood appropriate to situation Moderate Sedation - Procedure Monitoring Vital Signs: Procedure Monitoring Vital Signs Temperature 98.5 F 04/23/18 12:53 Pulse Rate 89 04/23/18 12:53 Respiratory Rate 16 04/23/18 12:53 Blood Pressure 162/82 04/23/18 12:53 O2 Sat by Pulse Oximetry (%) 100 04/23/18 12:53 ED Treatment Course - LABORATORY CBC & Chemistry Diagram: 04/23/18 14:00 04/23/18 14:00 - RADIOLOGY Radiology Studies Ordered: Category Date Time Status HEAD CT WITHOUT CONTRAST [CT] Stat CT Scan 04/23/18 13:51 Ordered - Medications Given in the ED: ED Medications Discontinued Medications Generic Name Dose Route Start Last Admin Trade Name Freq PRN Reason Stop Dose Admin Sodium Chloride 1,000 ml 04/23/18 13:52 04/23/18 14:10 Normal Saline - IV 04/23/18 13:53 1,000 ml ONCE ONE Administration Medical Decision Making - Medical Decision Making 04/23/18 14:17 Ana Rosa Dc is a 42yo otherwise healthy woman who presents reporting chronic headache for 3-4 months. She reports that the headache has been worse than normal for the past few days, and she also now reports nausea. - Headache in a band-like pattern, c/w tension headache. Pt reports headache is also sometimes one-sided and with report of nausea, may indicate migraine headache. However, no h/o migraines in the past. - No event noted preceding initial onset of headaches - No red flag symptoms (no sudden onset, no neurological changes, no recent trauma), but given chronicity of headache and no prior imaging, will obtain CT head to r/o mass or abnormality - 1L IVF, IV reglan, IV benedryl for symptoms. Will give IV toradol if test negative - CBC, CMP, UA to r/o abnormalities, urine test prior to toradol and CT. Reports taking 1000mg acetaminophen q4hr for several months. Acetaminophen level ordered; will assess LFT's - HTN to SBP 160's on arrival. Will recheck when pain is improved and treat if needed. 04/23/18 16:36 - Labs reviewed, unremarkable - Urine negative. 30mg IV toradol for pain - Reports feeling improved following reglan and benedryl - CT completed. Shows no intracranial pathology, but notes sinus disease - BP rechecked, now 121/76 - Discussed with Ms cD. Will be referred to neurology and ENT for follow up. Requesting prescription for ibuprofen. - Discharge home with follow up Discussed with Dr Ruvalcaba. Radhika Partida PGY1 *DC/Admit/Observation/Transfer Diagnosis at time of Disposition: Headache - Discharge Dispostion Disposition: HOME Condition at time of disposition: Stable Decision to Admit order: No - Referrals Referrals: Molly Holm MD [Primary Care Provider] - Blaise Lugo MD [Staff Physician] - Neto Leon MD [Staff Physician] - - Patient Instructions Printed Discharge Instructions: DI for Sinus Headache, DI for Headache Additional Instructions: Discharge Instructions: You were seen in the emergency department for chronic headaches. You had blood tests, a urine test, and a head CT scan. All of these were normal. There was no sign of bleeding or unusual masses on your head CT, but there was some sign of sinus disease. This may be contributing to your headaches. Medications: - You should take ibuprofen (Motrin/Advil) 800mg every 8 hours as needed for pain. A prescription for ibuprofen has been sent to your pharmacy. - You may take acetaminophen in between the doses of ibuprofen for continued pain. You can take up to 1000mg 4 times per day. DO NOT take more than 4000mg per day as this can cause liver damage. - If you have sinus pressure or nasal congestion, you may use a decongestant to help with your symptoms. These may be purchased at your regular pharmacy from the shelf or pharmacy counter. Follow the directions on the box. - You may try using a saline nasal spray or Neti Pot to help with your sinus inflammation. Follow Up: - You have been referred to a neurologist, Dr Lugo, for evaluation of your headaches. Call to schedule an appointment within the next week. - You have been referred to an ENT doctor, Dr Leon, for evaluation of your sinus inflammation. Call to schedule an appointment within the next 1-2 weeks. - Follow up with your regular doctor within the next week or if your symptoms do not improve. - Seek immediate medical attention if you have sudden onset of severe head pain , your headache wakes you from sleep, or you have one-sided weakness, facial droop, or slurred speech along with your headaches. - Post Discharge Activity
[2018-04-23 14:27] LABS: BASO % 1.2 % (0-2.0); EOS % 5.1 % (0-4.5); HEMATOCRIT 35.6 % (32.4-45.2); HEMOGLOBIN 12.4 GM/dL (10.7-15.3); LYMPH % 29.9 % (8-40); MCH 29.8 pg (25.7-33.7); MCHC 34.8 g/dl (32.0-36.0); MEAN CELL VOLUME 85.7 fl (80-96); MONO % 7.5 % (3.8-10.2); NEUT % 56.3 % (42.8-82.8); PLATELET COUNT 380 K/MM3 (134-434); RBC 4.16 M/mm3 (3.60-5.2); RDW 13.8 % (11.6-15.6); WHITE BLOOD COUNT 8.3 K/mm3 (4.0-10.0)
[2018-04-23 15:24] LABS: ALBUMIN 4.1 g/dl (3.4-5.0); ALK PHOS 63 U/L (45-117); ANION GAP 7 MMOL/L (8-16); BILIRUBIN,TOTAL 0.2 mg/dL (0.2-1); BLOOD UREA NITROGEN 14 mg/dL (7-18); CALCIUM 8.8 mg/dL (8.5-10.1); CHLORIDE 107 mmol/L (98-107); CO2 24 mmol/L (21-32); CREATININE 0.5 mg/dL (0.55-1.3); GLUCOSE,RANDOM 84 mg/dL (74-106); POTASSIUM 4.3 mmol/L (3.5-5.1); SGOT/AST 20 U/L (15-37); SGPT/ALT 26 U/L (13-61); SODIUM 138 mmol/L (136-145); TOT PROT 7.9 g/dl (6.4-8.2)
[2018-04-23 15:27] LABS: URINE APPEARANCE CLEAR; URINE BILIRUBIN NEGATIVE (<2.0 mg/dL); URINE COLOR STRAW; URINE GLUCOSE (UA) NEGATIVE (NEGATIVE); URINE KETONE NEGATIVE (NEGATIVE); URINE LEUK ESTERASE NEGATIVE (NEGATIVE); URINE NITRITE NEGATIVE (NEGATIVE); URINE PROTEIN NEGATIVE (NEGATIVE); URINE UROBILINOGEN NEGATIVE mg/dL (0.2-1.0)
[2018-04-23 15:53] LABS: EPI CELLS RARE /HPF (FEW); URINE MUCUS RARE
[2018-04-23] MEDS ORDERED: KETOROLAC TROMETHAMINE 30 MG/1 ML VIAL IVPUSH ONE (16:32)
[2018-04-23] MEDS ORDERED: KETOROLAC TROMETHAMINE 30 MG/1 ML VIAL ONE (16:54)
== END 2018-04-23 17:19 | disposition home or self-care (01) ==
LOC: JER 12:47
PROC: 3E033GC Introduction of Other Therapeutic Substance into Peripheral Vein, Percutaneous Approach (ICD-10-PCS; principal; 2018-04-23)
PROC: 3E033GC Introduction of Other Therapeutic Substance into Peripheral Vein, Percutaneous Approach (ICD-10-PCS; 2018-04-23)
PROC: 3E0333Z Introduction of Anti-inflammatory into Peripheral Vein, Percutaneous Approach (ICD-10-PCS; 2018-04-23)
DX: R51 Headache (principal)
CPT/HCPCS: 36415; 70450-TC; 80053; 80307; 81003; 81015; 84703; 85025; 99282-25

== ENCOUNTER 2018-12-14 13:47 | Emergency (ER) | payer OTHER ==
--- NOTE | 2018-12-14 13:51 | PDOC ---
Rapid Medical Evaluation Time Seen by Provider: 12/14/18 13:49 Medical Evaluation: Allergies Allergy/AdvReac Type Severity Reaction Status Date / Time No Known Drug Allergies Allergy Verified 12/14/18 13:49 12/14/18 13:49 I have performed a brief in-person evaluation of this patient. The patient presents with a chief complaint of: diffuse abdominal pain. lmp-6/ Pertinent physical exam findings: SNTND I have ordered the following: abd w/u The patient will proceed to the ED for further evaluation. Discharge Disposition - Diagnosis Abdominal pain - Referrals - Patient Instructions - Post Discharge Activity
[2018-12-14 13:52] VITALS: TEMP 97.7; BMI 25.7
[2018-12-14] MEDS ORDERED: SODIUM CHLORIDE 1,000 ML IV STA (13:52)
[2018-12-14] MEDS ORDERED: ONDANSETRON 4 MG/2 ML VIAL IVPUSH ONE (14:15)
[2018-12-14] MEDS ORDERED: KETOROLAC TROMETHAMINE 30 MG/1 ML VIAL IVPUSH ONE (14:15)
--- NOTE | 2018-12-14 14:23 | PDOC ---
History of Present Illness - General Chief Complaint: Pain, Acute Stated Complaint: ABDOMINAL PAIN Time Seen by Provider: 12/14/18 13:49 History Source: Patient Exam Limitations: No Limitations - History of Present Illness Travel History: No Initial Comments: 12/14/18 14:17 43-year-old female presents the emergency room with complaints of lower abdominal cramping since yesterday associated mild nausea. Patient has no urinary or bowel complaints. Patient also denies fever, chills, recent illness, or recent travel. Timing/Duration: reports: constant Quality: reports: moderate, cramping Abdominal Pain Onset Location: reports: RLQ, LLQ Pain Radiation: reports: no radiation Activities at Onset: reports: none Aggravating Factors: improves with: None Alleviating Factors: improves with: None Past History - Travel Traveled outside of the country in the last 30 days: No Close contact w/someone who was outside of country & ill: No - Past Medical History Allergies/Adverse Reactions: Allergies Allergy/AdvReac Type Severity Reaction Status Date / Time No Known Drug Allergies Allergy Verified 12/14/18 13:49 Home Medications: Ambulatory Orders Clindamycin [Cleocin -] 300 mg PO TID #21 capsule 03/13/18 Ibuprofen 800 mg PO TID PRN #30 tablet 04/23/18 Anemia: No Asthma: No Cancer: No Cardiac Disorders: No CVA: No COPD: No CHF: No DVT: No Dementia: No Diabetes: No GI Disorders: Yes (fistula SBO) Disorders: No HTN: No Hypercholesterolemia: No Liver Disease: No Seizures: No Thyroid Disease: No - Surgical History Abdominal Surgery: Yes (ECTOPIC PREG) Appendectomy: No Cardiac Surgery: No Cholecystectomy: No Lung Surgery: No Neurologic Surgery: No Orthopedic Surgery: No - Reproductive History (#): 4 Para: 1 Spontaneous : 3 - Immunization History Immunization Up to Date: Yes - Suicide/Smoking/Psychosocial Hx Smoking Status: No Smoking History: Never smoked Have you smoked in the past 12 months: No Number of Cigarettes Smoked Daily: 0 Hx Alcohol Use: No Drug/Substance Use Hx: No Substance Use Type: None Hx Substance Use Treatment: No Patient Lives Alone: No Lives with/in: spouse/SO Abd/GI Specific PMHX - Complaint Specific PMHX GERD: No GI Ulcer Disease: No Review of Systems - Review of Systems Able to Perform ROS?: Yes Constitutional: No: Symptoms Reported HEENTM: No: Symptoms Reported Respiratory: No: Symptoms reported Cardiac (ROS): No: Symptoms Reported ABD/GI: Yes: Nausea, Abdominal cramping Musculoskeletal: No: Symptoms Reported Integumentary: No: Symptoms Reported Neurological: No: Symptoms reported Endocrine: No: Symptoms Reported Hematologic/Lymphatic: No: Symptoms Reported *Physical Exam - Vital Signs Last Vital Signs Temp Pulse Resp BP Pulse Ox 97.7 F 80 18 160/91 96 12/14/18 13:49 12/14/18 13:49 12/14/18 13:49 12/14/18 13:49 12/14/18 13:49 - Physical Exam General Appearance: Yes: Nourished, Appropriately Dressed. No: Apparent Distress HEENT: negative: Pale Conjunctivae Neck: positive: Supple Respiratory/Chest: positive: Lungs Clear, Normal Breath Sounds. negative: Respiratory Distress, Accessory Muscle Use Cardiovascular: positive: Regular Rhythm, Regular Rate. negative: Murmur Gastrointestinal/Abdominal: positive: Soft, Tenderness (generalized greater in the lower quadrant bilaterally) Musculoskeletal: negative: CVA Tenderness Extremity: positive: Normal Inspection Integumentary: positive: Normal Color, Warm, Erythema, Moist Neurologic: positive: Motor Strength 5/5 (ambulatory) ED Treatment Course - LABORATORY CBC & Chemistry Diagram: 12/14/18 17:33 12/14/18 17:33 Medical Decision Making - Medical Decision Making 12/14/18 14:43 CC: Lower abdominal cramping for the past 2-3 days associated now with nausea. No other complaints. Exam lower abdominal tenderness with mild guarding no CVA tenderness vital signs stable. Plan: Labs, urine, IV fluids and ultrasound ordered 12/14/18 18:24 Laboratory Tests 12/14/18 12/14/18 12/14/18 17:33 17:33 17:33 WBC 10.5 H Hgb 11.7 Hct 35.2 Absolute Neuts (auto) 8.4 H Lipase 148 Urine Ketones Negative Urine Nitrite Negative Ur Leukocyte Esterase Trace She states feeling much better. Patient requesting to eat. Chemistry pending 12/14/18 18:46 Laboratory Tests 12/14/18 17:33 Sodium 142 Potassium 3.9 Chloride 108 H Carbon Dioxide 28 Anion Gap 7 L BUN 10.2 Creatinine 0.5 L Est GFR (CKD-EPI)NonAf 117.71 Random Glucose 90 Calcium 8.5 Total Bilirubin 0.4 AST 13 L ALT 27 Alkaline Phosphatase 59 Total Protein 7.3 Albumin 4.0 *DC/Admit/Observation/Transfer Diagnosis at time of Disposition: Abdominal pain, Ovarian cyst - Discharge Dispostion Disposition: HOME Condition at time of disposition: Improved - Referrals Referrals: Keshia Flaherty MD [Staff Physician] - - Patient Instructions Printed Discharge Instructions: DI for Ovarian Cyst Additional Instructions: Please follow-up with [facility] in regards to your ovarian cysts but Take simethicone as needed for gas and use Motrin 600mg as needed for discomfort. - Post Discharge Activity
[2018-12-14] MEDS ORDERED: KETOROLAC TROMETHAMINE 30 MG/1 ML VIAL ONE (15:06)
[2018-12-14] MEDS ORDERED: ONDANSETRON 4 MG/2 ML VIAL ONE (15:06)
[2018-12-14] MEDS ORDERED: SIMETHICONE 80 MG TAB.CHEW (FP) PO ONE (17:41)
[2018-12-14 18:13] LABS: BASO % 0.7 % (0-2.0); EOS % 0.9 % (0-4.5); HEMATOCRIT 35.2 % (32.4-45.2); HEMOGLOBIN 11.7 GM/dL (10.7-15.3); LYMPH % 13.5 % (8-40); MCH 28.3 pg (25.7-33.7); MCHC 33.2 g/dl (32.0-36.0); MEAN CELL VOLUME 85.3 fl (80-96); MEAN PLT VOLUME 7.9 fl (7.5-11.1); NEUT % 79.9 % (42.8-82.8); PLATELET COUNT 353 K/MM3 (134-434); RBC 4.13 M/mm3 (3.60-5.2); WHITE BLOOD COUNT 10.5 K/mm3 (4.0-10.0)
[2018-12-14 18:17] LABS: URINE APPEARANCE CLEAR; URINE BILIRUBIN NEGATIVE (NEGATIVE); URINE COLOR YELLOW; URINE GLUCOSE (UA) NEGATIVE (NEGATIVE); URINE KETONE NEGATIVE (NEGATIVE); URINE LEUK ESTERASE TRACE (NEGATIVE); URINE NITRITE NEGATIVE (NEGATIVE); URINE PROTEIN NEGATIVE (NEGATIVE); URINE UROBILINOGEN 0.2 mg/dL (0.2-1.0)
[2018-12-14 18:39] LABS: BILIRUBIN,TOTAL 0.4 mg/dL (0.2-1); BLOOD UREA NITROGEN 10.2 mg/dL (7-18); CALCIUM 8.5 mg/dL (8.5-10.1); CREATININE 0.5 mg/dL (0.55-1.3); POTASSIUM 3.9 mmol/L (3.5-5.1); TOT PROT 7.3 g/dl (6.4-8.2)
[2018-12-14 19:49] VITALS: BP 134/60; PULSE 72
[2018-12-14 19:54] LABS: EPI CELLS 0.6 /HPF (0-5/HPF); HYALINE CASTS 0.35 /lpf (0-8); URINE BACTERIA 6.1 /hpf (NEGATIVE); URINE WBC 2.4 /hpf (0-5)
== END 2018-12-14 19:40 | disposition home or self-care (01) ==
LOC: JER 13:47
PROC: 3E0333Z Introduction of Anti-inflammatory into Peripheral Vein, Percutaneous Approach (ICD-10-PCS; principal; 2018-12-14)
PROC: 3E033GC Introduction of Other Therapeutic Substance into Peripheral Vein, Percutaneous Approach (ICD-10-PCS; 2018-12-14)
PROC: 3E0337Z Introduction of Electrolytic and Water Balance Substance into Peripheral Vein, Percutaneous Approach (ICD-10-PCS; 2018-12-14)
DX: N83.209 Unspecified ovarian cyst, unspecified side (principal)
CPT/HCPCS: 36415; 76830-TC; 76856-TC; 80053; 81003; 83690; 85025; 86850; 86900; 86901; 96361; 96374; 96375; 99282-25; J7030

== ENCOUNTER 2018-12-14 22:48 | Inpatient (IN) | payer OTHER | END 2018-12-17 12:54 | disposition home or self-care (01) | LOC: JER 22:48 → JERBED 12-15 05:11 → J7W 12-15 14:35 ==

== ENCOUNTER 2019-02-12 16:19 | Inpatient (IN) | payer OTHER ==
--- NOTE | 2019-02-12 18:36 | PDOC ---
History of Present Illness - General Chief Complaint: Pain Stated Complaint: ABD PAIN Time Seen by Provider: 02/12/19 17:51 - History of Present Illness Initial Comments: 02/12/19 18:34 CHIEF COMPLAINT: abdominal pain HISTORY OF PRESENT ILLNESS: 43 yo F with hx of SBO presents to ED with abdominal pain since his morning. Patient reports that she vomited once today and c/o of nausea now. She c/o of intermittent abdominal pain today, continuous pain here in the ED. Her last BM was this morning but reports that she has been constipated and only able to pass small, hard bowels each time. She was feeling bloated this morning and did not feel that she was passing gas. took gasx this morning. Patient notes that she took an antacid "and sparkling water" today because she "felt acid coming up." LMP 01/24. Denies any urinary symptoms. PCP: Dr. Galeana No recent travel or sick contacts. PAST MEDICAL HISTORY:SBO FAMILY HISTORY: Denies SOCIAL HISTORY: Denies tobacco, alcohol, illicit drug use. SURGICAL HISTORY: Denies ALLERGIES: No known drug allergies REVIEW OF SYSTEMS General/Constitutional: Denies fever or chills. Denies weakness, weight change. HEENT: Denies change in vision. Denies ear pain or discharge. Denies sore throat. Cardiovascular: Denies chest pain or shortness of breath. Respiratory: Denies cough, wheezing, or hemoptysis. Gastrointestinal: Abdominal pain, vomiting, nausea, constipation. Denies diarrhea. Denies rectal bleeding. Genitourinary: Denies dysuria, frequency, or change in urination. Musculoskeletal: Denies joint or muscle swelling or pain. Denies neck or back pain. Skin and breasts: Denies rash or easy bruising. Neurologic: Denies headache, vertigo, loss of consciousness, or loss of sensation. Psychiatric: Denies depression or anxiety. Endocrine: Denies increased thirst. Denies abnormal weight change. Hematologic/Lymphatic: Denies anemia, easy bleeding, or history of blood clots. Allergic/Immunologic: Denies hives or skin allergy. Denies latex allergy. PHYSICAL EXAM General Appearance: Well-appearing, appropriately dressed. No apparent distress , no intoxication. HEENT: EOMI, PERRLA, normal ENT inspection, normal voice, TMs normal, pharynx normal. No conjunctival pallor. No photophobia, scleral icterus. Neck: Supple. Trachea midline. No tenderness, rigidity, carotid bruit, stridor , lymphadenopathy, or thyromegaly. Respiratory/Chest: Lungs CTAB. No shortness of breath, chest tenderness, respiratory distress, accessory muscle use. No crackles, rales, rhonchi, stridor , wheezing, dullness Cardiovascular: RRR. S1, S2. No JVD, murmur, bradycardia, tachycardia. Vascular Pulses: Dorsalis-Pedis (R): 2+, Dorsalis-Pedis (L): 2+ Gastrointestinal/Abdominal: Epigastric tenderness on palpation. No tenderness or rebound tenderness. No organomegaly, pulsatile mass, guarding, hernia, hepatomegaly, splenomegaly. Lymphatic: No adenopathy, tenderness. Musculoskeletal/Extremities: Normal inspection. FROM of all extremities, normal capillary refill. Pelvis Stable. No CVA tenderness. No tenderness to extremities, pedal edema, swelling, erythema or deformity. Integumentary: Appropriate color, dry, warm. 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 Fully oriented, alert. Appropriate mood/affect. Motor strength 5/5. No appreciable EOM palsy, facial droop or sensory deficit. 02/12/19 22:58 Past History - Past Medical History Allergies/Adverse Reactions: Allergies Allergy/AdvReac Type Severity Reaction Status Date / Time No Known Drug Allergies Allergy Verified 02/12/19 16:39 Home Medications: Ambulatory Orders Cyclobenzaprine HCl 10 mg PO HS 12/15/18 Ranitidine Oral Solution [Zantac Oral Solution -] 15 mg PO PRN PRN 12/15/18 Pantoprazole Sodium [Protonix] 40 mg PO DAILY #30 tablet. 12/17/18 Anemia: No Asthma: No Cancer: No Cardiac Disorders: No CVA: No COPD: No CHF: No DVT: No Dementia: No Diabetes: No GI Disorders: Yes (fistula SBO) Disorders: No HTN: No Hypercholesterolemia: No Liver Disease: No Seizures: No Thyroid Disease: No - Surgical History Abdominal Surgery: Yes (ECTOPIC PREG) Appendectomy: No Cardiac Surgery: No Cholecystectomy: No Lung Surgery: No Neurologic Surgery: No Orthopedic Surgery: No - Reproductive History (#): 4 Para: 1 Spontaneous : 3 - Immunization History Immunization Up to Date: Yes - Suicide/Smoking/Psychosocial Hx Smoking Status: No Smoking History: Never smoked Have you smoked in the past 12 months: No Number of Cigarettes Smoked Daily: 0 Cigars Per Day: 0 Information on smoking cessation initiated: No Hx Alcohol Use: No Drug/Substance Use Hx: No Substance Use Type: None Hx Substance Use Treatment: No Abd/GI Specific PMHX - Complaint Specific PMHX GERD: No GI Ulcer Disease: No *Physical Exam - Vital Signs Last Vital Signs Temp Pulse Resp BP Pulse Ox 98.2 F 79 16 137/80 98 02/12/19 16:42 02/12/19 16:42 02/12/19 16:42 02/12/19 16:42 02/12/19 16:42 ED Treatment Course - LABORATORY CBC & Chemistry Diagram: 02/12/19 17:50 02/12/19 17:50 Medical Decision Making - Medical Decision Making 02/12/19 21:31 43 yo F with hx of SBO presents to ED with abdominal pain since his morning. -labs -GI cocktail -CTAP 02/13/19 01:12 CT suggestive of worsening enterocolitis vs bowel obstruction. Will admit for pain control and routine surgical consult in the am. Discussed case with admitting resident MD Torres, patient accepted for inpatient admission. *DC/Admit/Observation/Transfer Diagnosis at time of Disposition: Colitis, Bowel obstruction - Discharge Dispostion Decision to Admit order: Yes - Referrals - Patient Instructions - Post Discharge Activity
[2019-02-12] MEDS ORDERED: PANTOPRAZOLE SODIUM 40 MG VIAL IVPUSH ONE (18:37)
[2019-02-12] MEDS ORDERED: FAMOTIDINE 20 MG/50 ML IVPB 20 MG/50 ML MG IVPB ONE ×2 (18:37→19:55)
[2019-02-12] MEDS ORDERED: PANTOPRAZOLE SODIUM 40 MG VIAL ONE ×2 (19:55→20:40)
[2019-02-12 20:02] LABS: BASO % 1.1 % (0-2.0); EOS % 2.9 % (0-4.5); HEMATOCRIT 37.1 % (32.4-45.2); HEMOGLOBIN 12.2 GM/dL (10.7-15.3); LYMPH % 25.6 % (8-40); MCH 28.4 pg (25.7-33.7); MCHC 32.8 g/dl (32.0-36.0); MEAN CELL VOLUME 86.6 fl (80-96); MONO % 6.5 % (3.8-10.2); NEUT % 63.9 % (42.8-82.8); PLATELET COUNT 322 K/MM3 (134-434); RBC 4.29 M/mm3 (3.60-5.2); RDW 14.5 % (11.6-15.6); WHITE BLOOD COUNT 9.9 K/mm3 (4.0-10.0)
[2019-02-12 20:24] LABS: ALBUMIN 4.2 g/dl (3.4-5.0); BILIRUBIN,TOTAL 0.5 mg/dL (0.2-1); CALCIUM 9.1 mg/dL (8.5-10.1); CREATININE 0.6 mg/dL (0.55-1.3); POTASSIUM 3.9 mmol/L (3.5-5.1); TOT PROT 7.6 g/dl (6.4-8.2)
[2019-02-12] MEDS ORDERED: ACETAMINOPHEN 1000 MG/100 ML VIAL (NON FORMULARY) IVPB ONE (23:00)
[2019-02-12] MEDS ORDERED: ACETAMINOPHEN INJECTION 100 ML IVPB ONE (23:47)
[2019-02-13] MEDS ORDERED: ONDANSETRON 4 MG/2 ML VIAL IVPUSH ONE (00:47)
[2019-02-13] MEDS ORDERED: ONDANSETRON 4 MG/2 ML VIAL IVPUSH PRN (01:05)
--- NOTE | 2019-02-13 01:21 | HP ---
Admitting History and Physical - Primary Care Physician PCP: Dr. Galeana - Admission Chief Complaint: Adbomen pain History of Present Illness: 43 year old female with hx of fistula,SBO arrived to ED with abdominal pain. Abdomen pain started in the morning has been intermittent since then complains of nausea and voimted x1 at home. Last BM was in the morning (moved multiple times but unable to completely empty), feels bloated. Patient tried gasx, antacid without relief. Denies CP/SOB, diarrhea, denies urinary symptoms History Source: Patient Limitations to Obtaining History: No Limitations - Past Medical History Gastrointestinal: Yes: Other (history of SBO/fistula) ...LMP: 10/03/18 - Past Surgical History Past Surgical History: Yes: Additional Past Surgical History: ECTOPIC - Smoking History Smoking history: Never smoked Have you smoked in the past 12 months: No Aproximately how many cigarettes per day: 0 - Alcohol/Substance Use Hx Alcohol Use: No History of Substance Use: reports: None - Social History ADL: Independent History of Recent Travel: No Home Medications - Allergies Allergies/Adverse Reactions: Allergies Allergy/AdvReac Type Severity Reaction Status Date / Time No Known Drug Allergies Allergy Verified 02/12/19 16:39 - Home Medications Home Medications: Ambulatory Orders Cyclobenzaprine HCl 10 mg PO HS 12/15/18 Ranitidine Oral Solution [Zantac Oral Solution -] 15 mg PO PRN PRN 12/15/18 Pantoprazole Sodium [Protonix] 40 mg PO DAILY #30 tablet. 12/17/18 Family Medical History Family History: Denies Review of Systems - Review of Systems Constitutional: reports: No Symptoms Eyes: reports: No Symptoms HENT: reports: No Symptoms Neck: reports: No Symptoms Cardiovascular: reports: No Symptoms Respiratory: reports: No Symptoms Gastrointestinal: reports: Abdominal Pain, Constipation, Nausea, Vomiting Genitourinary: reports: No Symptoms Musculoskeletal: reports: No Symptoms Neurological: reports: No Symptoms Endocrine: reports: No Symptoms Hematology/Lymphatic: reports: No Symptoms Psychiatric: reports: No Symptoms Physical Examination Vital Signs: Vital Signs Temperature 98.2 F 02/12/19 16:42 Pulse Rate 79 02/12/19 16:42 Respiratory Rate 16 02/12/19 16:42 Blood Pressure 137/80 02/12/19 16:42 O2 Sat by Pulse Oximetry (%) 100 02/12/19 20:39 Constitutional: Yes: No Distress Eyes: Yes: Conjunctiva Clear, EOM Intact HENT: Yes: Atraumatic, Normocephalic Neck: Yes: Supple, Trachea Midline Cardiovascular: Yes: Regular Rate and Rhythm Respiratory: Yes: Regular, CTA Bilaterally Gastrointestinal: Yes: Normal Bowel Sounds, Soft, Tenderness Musculoskeletal: Yes: WNL Extremities: Yes: WNL Neurological: Yes: Alert, Oriented Labs: CBC, BMP 02/12/19 17:50 02/12/19 17:50 Imaging - Results Cat Scan: Report Reviewed (CT abd/pelvis: persistent recurrent entercolitis, coexisting distal small bowel obstruction) Problem List - Problems (1) Bowel obstruction Code(s): K56.609 - UNSP INTESTNL OBST, UNSP TO PARTIAL VERSUS COMPLETE OBST (2) Colitis Code(s): K52.9 - NONINFECTIVE GASTROENTERITIS AND COLITIS, UNSPECIFIED Assessment/Plan 43 year old female with hx of fistula,SBO arrived to ED with abdominal pain. Abdomen pain started in the morning has been intermittent since then complains of nausea and voimted x1 at home. Last BM was in the morning (moved multiple times but unable to completely empty), feels bloated. Enterocolitis vs SBO - CT Abd: mildly increased fluid filled small bowel distention with current max luminal diameter of 3cm previous 2 cm; persistent/recurrent enterocolitis coexisting distal bowel obstruction - in ED given protonix IV and Famotidine - given ofirmev x1 - NPO - continue with zofran 4 mg q 8 hours PRN - give lactulose 20 ml x1 - continue with miralax in Am - surgical consult in AM Visit type - Emergency Visit Emergency Visit: Yes ED Registration Date: 02/12/19 Care time: The patient presented to the Emergency Department on the above date and was hospitalized for further evaluation of their emergent condition. - New Patient This patient is new to me today: Yes Date on this admission: 02/13/19 - Critical Care Critical Care patient: No
[2019-02-13] MEDS ORDERED: DOCUSATE SODIUM 100 MG CAPSULE (FP) PO PRN (01:31)
[2019-02-13] MEDS ORDERED: SENNOSIDES 8.6MG TABLET (FP) PO PRN (01:31)
[2019-02-13] MEDS ORDERED: LACTULOSE 20 GM/30 ML UDC (FOR ORAL USE ONLY) PO ONE (01:35)
[2019-02-13 03:57] VITALS: BMI 25.1
[2019-02-13] MEDS: ACETAMINOPHEN 1000 MG/100 ML VIAL (NON FORMULARY) IVPB PRN (06:46)
[2019-02-13] MEDS ORDERED: DOCUSATE SODIUM 100 MG CAPSULE (FP) PO SCH (10:00)
[2019-02-13] MEDS ORDERED: POLYETHYLENE GLYCOL 3350 119 GM BTL PO SCH (10:00)
[2019-02-13] MEDS ORDERED: PANTOPRAZOLE 40 MG TABLET (FP) PO SCH (10:00)
[2019-02-13] MEDS: PANTOPRAZOLE SODIUM 40 MG VIAL IVPUSH SCH (10:12)
--- NOTE | 2019-02-13 11:58 | PN ---
Progress Note, Physician Chief Complaint: PATIENT IS COMFORTABLE AT THIS MOMENT NO FEVER OR CHILLS NO N/V EVENTS AND NOTES REVIEWED - Current Medication List Current Medications: Active Medications Acetaminophen (Ofirmev Injection -) 1,000 mg IVPB Q6H PRN PRN Reason: PAIN LEVEL 4 - 6 Last Admin: 02/13/19 06:46 Dose: 1,000 mg Ondansetron HCl (Zofran Injection) 4 mg IVPUSH Q8H PRN PRN Reason: NAUSEA Pantoprazole Sodium (Protonix Iv) 40 mg IVPUSH DAILY [facility] Last Admin: 02/13/19 10:12 Dose: 40 mg - Objective Vital Signs: Vital Signs Temperature 98.0 F 02/13/19 06:00 Pulse Rate 101 H 02/13/19 06:00 Respiratory Rate 18 02/13/19 07:00 Blood Pressure 127/94 02/13/19 06:00 O2 Sat by Pulse Oximetry (%) 100 02/13/19 07:00 Constitutional: Yes: Mild Distress Cardiovascular: Yes: Regular Rate and Rhythm Respiratory: Yes: WNL Gastrointestinal: Yes: Tenderness (EPIGASTRIC MILD) Musculoskeletal: Yes: WNL Extremities: Yes: WNL Edema: No Peripheral Pulses WNL: Yes Integumentary: Yes: WNL Wound/Incision: Yes: Clean/Dry Neurological: Yes: WNL ...Motor Strength: WNL Psychiatric: Yes: WNL Labs: CBC, BMP 02/12/19 17:50 02/12/19 17:50 Problem List - Problems (1) Bowel obstruction Code(s): K56.609 - UNSP INTESTNL OBST, UNSP TO PARTIAL VERSUS COMPLETE OBST (2) Colitis Code(s): K52.9 - NONINFECTIVE GASTROENTERITIS AND COLITIS, UNSPECIFIED (3) Abdominal pain Code(s): R10.9 - UNSPECIFIED ABDOMINAL PAIN Assessment/Plan NPO FOR NOW, POSSIBLE TO START CLEAR LIQUIDS THIS AFTERNOON IF APPROVED BY GI/SX PPI AND IVF CT ABD/PELVIS COMPARED TO NOVEMBER 2018 SCAN THERE IS A CHANGE OF 1CM SIZE OF FISTULA SURGERY TO EVALUATE PATIENT, DOUBT THIS WILL NEED IMMEDIATE SURGERY OOB TO CHAIR PAIN CONTROL
[2019-02-13] MEDS: KETOROLAC TROMETHAMINE 30 MG/1 ML VIAL IVPUSH SCH ×2 (13:14→17:43)
--- NOTE | 2019-02-13 13:49 | CON.GI ---
Consult Consult Specialty:: GI Referred by:: coverage for Dr Seay - History of Present Illness History of Present Illness: 43 y/o F with pMH of ectopic ,s/p SBO with adhesiolysis 2005, s/p enterocutaneous fistula 2011(managed conservatively was admitted 11/2018 because of enterocolitis. She was doing well until yesterday when she developed diffuse abdominal pain and bloating. CT was done which revealed fluid filled small bowel prominent appendix. She contnue s to have pain overnight, no BM , no passage of gas. - Past Medical History Gastrointestinal: Yes: Other (history of SBO/fistula) ...LMP: 01/24/19 ...: No Additional Medical History: Denies - Past Surgical History Past Surgical History: Yes: - Alcohol/Substance Use Hx Alcohol Use: No History of Substance Use: reports: None - Smoking History Smoking history: Never smoked Have you smoked in the past 12 months: No Aproximately how many cigarettes per day: 0 - Social History Usual Living Arrangement: With Spouse ADL: Independent History of Recent Travel: No Home Medications - Allergies Allergies/Adverse Reactions: Allergies Allergy/AdvReac Type Severity Reaction Status Date / Time No Known Drug Allergies Allergy Verified 02/12/19 16:39 - Home Medications Home Medications: Ambulatory Orders Ranitidine Oral Solution [Zantac Oral Solution -] 15 mg PO PRN PRN 12/15/18 Pantoprazole Sodium [Protonix] 40 mg PO DAILY #30 tablet. 12/17/18 Physical Exam-GI Vital Signs: Vital Signs Temperature 98.0 F 02/13/19 06:00 Pulse Rate 101 H 02/13/19 06:00 Respiratory Rate 18 02/13/19 07:00 Blood Pressure 127/94 02/13/19 06:00 O2 Sat by Pulse Oximetry (%) 100 02/13/19 07:00 Labs: CBC, BMP 02/12/19 17:50 02/12/19 17:50 Problem List - Problems (1) Bowel obstruction Assessment/Plan: --partial, SIBO R> serial abdominal examnation await surgical consultation IV hydratrion IV Flagyl Code(s): K56.609 - UNSP INTESTNL OBST, UNSP TO PARTIAL VERSUS COMPLETE OBST (2) Enteritis Assessment/Plan: r/o Crohnsm appendicitis R> ESR, CRP, S cereviscea, PANCA Code(s): K52.9 - NONINFECTIVE GASTROENTERITIS AND COLITIS, UNSPECIFIED
[2019-02-13] MEDS: DEXTROSE 5%-NORMAL SALINE 1,000 ML IV SCH (15:05)
[2019-02-13] MEDS: ONDANSETRON 4 MG/2 ML VIAL IVPB SCH ×3 (15:05→21:17)
[2019-02-13] MEDS ORDERED: BISACODYL 10 MG SUPP.RECT PR ONE (19:53)
--- NOTE | 2019-02-13 20:02 | CONSULT ---
Consult Consult Specialty:: General Surgery Referred by:: Virginia Torres Reason for Consultation:: SBO - History of Present Illness Chief Complaint: central abdominal pain, N/V, distention History of Present Illness: 43yo F with h/o ectopic and c/s, SBO s/p laparotomy with postop enterocutaneous fistula which healed slowly but spontaneously, began having central abdominal pain with distention. She did have soft, formed BM Th night. The pain initially went away with some repositioning, but had come back, and then she had N/V. No fever or chills. No urinary symptoms. She was concerned about another possible obstruction. The pain did improve to mild only, and she was able to do an errand, but thought she would come to the ER anyway, just to make sure she was ok. Nausea had improved by then as well. She had normal wbc in ER, was afebrile, and CT without oral contrast showed some increase in dilation of lower small bowel loops over previous scan, fluid-filled, and a little fluid present in cul-de-sac and mesentery with some mild prominence of appendix thought to be reactive (had not been seen on previous scan). She was admitted to medicine, NPO with IV fluids, and surgery was asked to assess. She is seen and examined in bed. She reports feeling better - no pain today, no further nausea, passing gas but no BM since night. Hungry, has had a headache today. Abdomen is less distended. She was seen by GI earlier as well. - History Source History Provided By: Patient Limitations to Obtaining History: No Limitations - Past Medical History Gastrointestinal: Yes: Other (history of SBO/laparotomy, postop EC fistula healed without surgery) Reproductive: Yes: Ectopic ...LMP: 01/24/19 ...: No Additional Medical History: Denies - Past Surgical History Past Surgical History: Yes: Additional Surgical History: ectopic/salpingectomy; laparotomy for SBO with postop EC fistula, healed conservatively - Alcohol/Substance Use Hx Alcohol Use: No History of Substance Use: reports: None - Smoking History Smoking history: Never smoked Have you smoked in the past 12 months: No - Social History Usual Living Arrangement: With Spouse ADL: Independent History of Recent Travel: No Home Medications - Allergies Allergies/Adverse Reactions: Allergies Allergy/AdvReac Type Severity Reaction Status Date / Time No Known Drug Allergies Allergy Verified 02/12/19 16:39 - Home Medications Home Medications: Ambulatory Orders Ranitidine Oral Solution [Zantac Oral Solution -] 15 mg PO PRN PRN 12/15/18 Pantoprazole Sodium [Protonix] 40 mg PO DAILY #30 tablet. 12/17/18 Family Medical History Family Hx Diabetes: Mother, Father Other Family History: HTN - mother and father Review of Systems - Review of Systems Constitutional: denies: Chills, Fever Eyes: denies: Blurred Vision, Recent Change in Vision HENT: denies: Difficult Swallowing, Throat Pain Neck: denies: Swollen Glands, Tenderness Cardiovascular: denies: Chest Pain, Palpitations Respiratory: denies: Cough, SOB Gastrointestinal: reports: Abdominal Pain, Bloating, Nausea, Vomiting. denies: Constipation, Diarrhea Genitourinary: denies: Burning, Dysuria Musculoskeletal: denies: Back Pain, Joint Pain, Muscle Pain Integumentary: denies: Change in Color, Rash Neurological: reports: Headache (today only). denies: Dizziness Psychiatric: denies: Anxiety, Depression Physical Exam Vital Signs: Vital Signs Temperature 97.7 F 02/13/19 15:52 Pulse Rate 82 02/13/19 15:52 Respiratory Rate 18 02/13/19 15:52 Blood Pressure 146/69 02/13/19 15:52 O2 Sat by Pulse Oximetry (%) 100 02/13/19 07:00 Constitutional: Yes: Well Nourished, No Distress, Calm Eyes: Yes: Conjunctiva Clear, EOM Intact HENT: Yes: Atraumatic, Normocephalic Neck: Yes: Supple, Trachea Midline Cardiovascular: Yes: Regular Rate and Rhythm Respiratory: Yes: Regular, CTA Bilaterally Gastrointestinal: Yes: Normal Bowel Sounds, Soft. No: Distention, Tenderness, Tenderness, Epigastrium, Vomiting ...Rectal Exam: Yes: Deferred Renal/: No: CVA Tenderness - Left, CVA Tenderness - Right Musculoskeletal: No: Back Pain, Joint Stiffness, Joint Swelling Extremities: No: Cool, Cyanosis Edema: No Peripheral Pulses WNL: Yes Integumentary: Yes: Body Piercing (left nasal). No: Jaundice, Rash Neurological: Yes: Alert, Oriented. No: Unsteady Gait Psychiatric: Yes: Alert, Oriented Labs: CBC, BMP 02/12/19 17:50 02/12/19 17:50 CMP Sodium 139 mmol/L (136-145) 02/12/19 17:50 Potassium 3.9 mmol/L (3.5-5.1) 02/12/19 17:50 Chloride 107 mmol/L (98-107) 02/12/19 17:50 Carbon Dioxide 25 mmol/L (21-32) 02/12/19 17:50 Anion Gap 7 MMOL/L (8-16) L 02/12/19 17:50 BUN 14.0 mg/dL (7-18) 02/12/19 17:50 Creatinine 0.6 mg/dL (0.55-1.3) 02/12/19 17:50 Est GFR (CKD-EPI)AfAm 128.48 02/12/19 17:50 Est GFR (CKD-EPI)NonAf 110.86 02/12/19 17:50 Random Glucose 81 mg/dL (74-106) 02/12/19 17:50 Calcium 9.1 mg/dL (8.5-10.1) 02/12/19 17:50 Total Bilirubin 0.5 mg/dL (0.2-1) 02/12/19 17:50 AST 13 U/L (15-37) L 02/12/19 17:50 ALT 27 U/L (13-61) 02/12/19 17:50 Alkaline Phosphatase 62 U/L (45-117) 02/12/19 17:50 Total Protein 7.6 g/dl (6.4-8.2) 02/12/19 17:50 Albumin 4.2 g/dl (3.4-5.0) 02/12/19 17:50 Lipase 82 U/L (73-393) 02/12/19 17:50 Serum , Qual Negative 02/12/19 19:50 Imaging - Results X-ray: Report Reviewed, Image Reviewed (AXR from earlier today - less bowel distention, difficult to evaluate fluid-filled SB loops, but reported as no clear obstructive signs) Cat Scan: Report Reviewed, Image Reviewed (images reviewed - dilated, fluid- filled SB loops, no oral contrast used; little free fluid present, mildly prominent appendix) Problem List - Problems (1) Intestinal adhesions with partial obstruction Assessment/Plan: by pt report, she felt better before coming to hospital, with only mild pain and no further N/V may have had partial SBO, seems to have resolved without intervention no tenderness, no pain, no distention at this time passing gas ok with suppository to stimulate bowel function from below hungry without nausea AXR with improvement, though no PO contrast to follow through will try clears - if tolerated through breakfast, may advance as tolerated tomorrow d/c home once tolerating regular diet will leave IV fluids tonight until tolerating unclear indication for antibiotics - would stop flagyl consider probiotic starting tomorrow if N/V, distention, pain recur, will need to reassess will follow peripherally Code(s): K56.51 - INTESTINAL ADHESIONS [BANDS], WITH PARTIAL OBSTRUCTION (2) Generalized abdominal pain Assessment/Plan: resolved Code(s): R10.84 - GENERALIZED ABDOMINAL PAIN (3) Nausea and vomiting Assessment/Plan: resolved Code(s): R11.2 - NAUSEA WITH VOMITING, UNSPECIFIED Qualifiers: Vomiting type: unspecified Vomiting Intractability: non-intractable Qualified Code(s): R11.2 - Nausea with vomiting, unspecified (4) H/O intestinal obstruction Code(s): Z87.19 - PERSONAL HISTORY OF OTHER DISEASES OF THE DIGESTIVE SYSTEM
[2019-02-13] MEDS ORDERED: SENNOSIDES 8.6MG TABLET (FP) PO SCH (22:00)
[2019-02-14] MEDS: ACETAMINOPHEN 1000 MG/100 ML VIAL (NON FORMULARY) IVPB PRN (00:54)
[2019-02-14] MEDS ORDERED: ONDANSETRON 4 MG/2 ML VIAL IVPUSH PRN (02:00)
[2019-02-14] MEDS: ONDANSETRON 4 MG/2 ML VIAL IVPB SCH (02:10)
[2019-02-14] MEDS: KETOROLAC TROMETHAMINE 30 MG/1 ML VIAL IVPUSH SCH ×2 (03:00→11:29)
[2019-02-14] MEDS: DEXTROSE 5%-NORMAL SALINE 1,000 ML IV SCH (03:18)
[2019-02-14 08:35] LABS: HEMATOCRIT 31.9 % (32.4-45.2); HEMOGLOBIN 10.8 GM/dL (10.7-15.3); MCH 29.2 pg (25.7-33.7); MCHC 33.9 g/dl (32.0-36.0); MEAN CELL VOLUME 86.3 fl (80-96); MEAN PLT VOLUME 7.7 fl (7.5-11.1); PLATELET COUNT 294 K/MM3 (134-434); RBC 3.69 M/mm3 (3.60-5.2); RDW 14.1 % (11.6-15.6)
[2019-02-14 08:41] LABS: BLOOD UREA NITROGEN 10.5 mg/dL (7-18); CALCIUM 8.2 mg/dL (8.5-10.1); CREATININE 0.5 mg/dL (0.55-1.3); POTASSIUM 3.6 mmol/L (3.5-5.1)
--- NOTE | 2019-02-14 09:52 | DS ---
Physical Examination Vital Signs: Vital Signs Temperature 97.8 F 02/14/19 05:00 Pulse Rate 75 02/14/19 05:00 Respiratory Rate 19 02/13/19 21:00 Blood Pressure 138/80 02/14/19 05:00 O2 Sat by Pulse Oximetry (%) 100 02/13/19 22:00 Findings/Remarks: FEELING BETTER ON CLEAR DIET ADVANCING TO FULL LIQUID Constitutional: Yes: Mild Distress Eyes: Yes: WNL HENT: Yes: WNL Neck: Yes: WNL Cardiovascular: Yes: WNL Respiratory: Yes: WNL Gastrointestinal: Yes: Soft Musculoskeletal: Yes: WNL Extremities: Yes: WNL Edema: No Labs: CBC, BMP 02/14/19 07:31 02/14/19 07:31 Discharge Summary Reason For Visit: COLITIS INTESTINAL OBSTRUCTION Current Active Problems Bowel obstruction (Acute) Colitis (Acute) Generalized abdominal pain (Acute) H/O intestinal obstruction (Acute) Intestinal adhesions with partial obstruction (Acute) Nausea and vomiting (Acute) Procedures: Principal: CT SCAN/XRAY Hospital Course: ADMITTED LIKELY SBO, SEEN BY GI AND SURGERY NO PROCEDURE NEEDED AT THIS TIME ADVANCE FROM CLEAR DIET TO FULL LIQUID IF TOLERATED CAN DC HOME TODAY AND SLOWLY ADVANCE OF LIQUIDS TO SOLID IN 2-3 DAYS Condition: Improved - Instructions Diet, Activity, Other Instructions: LIQUID DIET FOR [address] MAJO CARDONA 1PM AT [address] Disposition: HOME - Home Medications Comprehensive Discharge Medication List: Ambulatory Orders Ranitidine Oral Solution [Zantac Oral Solution -] 15 mg PO PRN PRN 12/15/18 Pantoprazole Sodium [Protonix] 40 mg PO DAILY #30 tablet. 12/17/18
[2019-02-14] MEDS: PANTOPRAZOLE 40 MG TABLET (FP) PO SCH (10:36)
[2019-02-14] MEDS: PANTOPRAZOLE SODIUM 40 MG VIAL IVPUSH SCH (11:29)
--- NOTE | 2019-02-14 13:33 | PN ---
GI Progress Note Subjective: passed alot of gas overnight, feel a lot better, tolerated clear liquids - Objective Vital Signs: Vital Signs Temperature 97.8 F 02/14/19 05:00 Pulse Rate 76 02/14/19 11:00 Respiratory Rate 18 02/14/19 11:00 Blood Pressure 120/70 02/14/19 11:00 O2 Sat by Pulse Oximetry (%) 100 02/13/19 22:00 Constitutional: Well Nourished Eyes: Yes: Conjunctiva Clear HENT: Yes: Atraumatic Neck: Yes: Trachea Midline Cardiovascular: Yes: Regular Rate and Rhythm Respiratory: Yes: CTA Bilaterally ...Palpate: Yes: Soft. No: Guarding, Hepatomegaly, Mass, Pulsatile Mass, Tenderness ...Percussion: Yes: Tympanitic Labs: CBC, BMP 02/14/19 07:31 02/14/19 07:31 Problem List - Problems (1) Bowel obstruction Assessment/Plan: partial with SIBO R> Flagyl 250mg tid advance diet Code(s): K56.609 - UNSP INTESTNL OBST, UNSP TO PARTIAL VERSUS COMPLETE OBST (2) Enteritis Code(s): K52.9 - NONINFECTIVE GASTROENTERITIS AND COLITIS, UNSPECIFIED
[2019-02-14] MEDS: metroNIDAZOLE 250 MG TABLET PO SCH ×2 (13:45→22:04)
[2019-02-14] MEDS: KETOROLAC TROMETHAMINE 30 MG/1 ML VIAL IVPUSH PRN (18:41)
[2019-02-14] MEDS: ONDANSETRON *ODT* 4 MG TABLET SL PRN (18:41)
[2019-02-15] MEDS: metroNIDAZOLE 250 MG TABLET PO SCH (06:25)
--- NOTE | 2019-02-15 08:39 | PN.GI ---
GI Progress Note Subjective: Patient tolerating diet but states having mild lower abdominal pain after eating. Complain of facial swelling, no flushing or difficulty breathing. Denies nausea, vomiting, diarrhea, rectal bleeding, melena. - Objective Vital Signs: Vital Signs Temperature 98.4 F 02/14/19 20:00 Pulse Rate 89 02/14/19 20:00 Respiratory Rate 02/14/19 20:00 Blood Pressure 145/86 02/14/19 20:00 O2 Sat by Pulse Oximetry (%) 100 02/14/19 21:00 Constitutional: No Distress, Calm Eyes: Yes: Conjunctiva Clear HENT: Yes: Atraumatic Cardiovascular: Yes: Regular Rate and Rhythm Respiratory: Yes: Regular, CTA Bilaterally Gastrointestinal Inspection: Yes: WNL. No: Ascites, Distention, Hernia, Scars, Other ...Auscultate: Yes: Normoactive Bowel Sounds. No: Hyperactive Bowel Sounds, Hypoactive Bowel Sounds, No Bowel Sounds, Other ...Palpate: Yes: Soft, Tenderness (mid lower). No: Firm/Rigid, Guarding, Hepatomegaly, Mass, Pulsatile Mass, Splenomegaly, Tenderness, Epigastium, Tenderness, Rebound, Other ...Percussion: Yes: Tympanitic. No: Dullness, Fluid Wave, Other Neurological: Yes: Alert, Oriented Psychiatric: Yes: Alert, Oriented Labs: CBC, BMP 02/14/19 07:31 02/14/19 07:31 Active Medications Generic Name Dose Route Start Last Admin Trade Name Freq PRN Reason Stop Dose Admin Ketorolac Tromethamine 30 mg 02/14/19 10:01 02/14/19 18:41 Toradol Injection - IVPUSH 02/19/19 10:00 30 mg Q8H PRN Administration PAIN LEVEL 6-10 Levofloxacin 500 mg 02/15/19 08:45 Levaquin - PO DAILY@0600 KATELYNN Ondansetron HCl 4 mg 02/14/19 10:01 02/14/19 18:41 Zofran Odt - SL 4 mg Q8H PRN Administration NAUSEA Pantoprazole Sodium 40 mg 02/14/19 10:15 02/14/19 10:36 Protonix - PO 40 mg DAILY KATELYNN Administration Problem List - Problems (1) Bowel obstruction Assessment/Plan: partial with SIBO R> Flagyl 250mg tid discontinued due to possible reaction, started on Cipro 500mg BID x 7 days tolerating diet Code(s): K56.609 - UNSP INTESTNL OBST, UNSP TO PARTIAL VERSUS COMPLETE OBST (2) Enteritis Assessment/Plan: r/o Crohnsm appendicitis R> ESR, CRP, S cereviscea, PANCA Code(s): K52.9 - NONINFECTIVE GASTROENTERITIS AND COLITIS, UNSPECIFIED
[2019-02-15 10:09] VITALS: BP 155/82; PULSE 82; TEMP 97.7
[2019-02-15] MEDS: PANTOPRAZOLE 40 MG TABLET (FP) PO SCH (10:14)
[2019-02-15] MEDS: KETOROLAC TROMETHAMINE 30 MG/1 ML VIAL IVPUSH PRN (10:14)
[2019-02-15] MEDS: ONDANSETRON *ODT* 4 MG TABLET SL PRN (10:16)
[2019-02-15] MEDS ORDERED: metroNIDAZOLE 250 MG TABLET PO SCH (14:30)
== END 2019-02-15 14:24 | disposition home or self-care (01) | DRG 249 ==
LOC: JER 16:19 → JERBED 23:26 → J6S 02-13 01:43
PROVIDERS: ADMIT Family Medicine; ATTEND Family Medicine
DX: K52.9 Noninfective gastroenteritis and colitis, unspecified (principal); K56.51 Intestinal adhesions [bands], with partial obstruction; R10.9 Unspecified abdominal pain; R11.2 Nausea with vomiting, unspecified; K59.00 Constipation, unspecified
CPT/HCPCS: 36415; 74019-TC-FY; 74177-TC; 80048; 80053; 83690; 84703; 85025; 85027; 99284-25; J0131; Q0162

== ENCOUNTER 2020-01-12 17:07 | Inpatient (IN) | payer OTHER ==
[2020-01-12] MEDS ORDERED: ONDANSETRON 4 MG/2 ML VIAL IVPUSH ONE (17:33)
[2020-01-12] MEDS ORDERED: SODIUM CHLORIDE 0.9% 500 ML INFUS.BAG IV ONE (17:34)
--- NOTE | 2020-01-12 17:59 | PDOC ---
Documentation entered by Allyson Paris SCRIBE, acting as scribe for Zoey Edwards MD. Zoey Edwards MD: This documentation has been prepared by the Wellington collado Lincy, SCRIBE, under my direction and personally reviewed by me in its entirety. I confirm that the documentation accurately reflects all work, treatment, procedures, and medical decision making performed by me. Attending Attestation - Resident Resident Name: Herbie Correa - ED Attending Attestation I have performed the following: I have examined & evaluated the patient, The case was reviewed & discussed with the resident, I agree w/resident's findings & plan, Exceptions are as noted - HPI HPI: 01/12/20 17:56 44-year-old female history of prior ectopic with subsequent bowel injury and prior bowel obstruction here today complaining of nausea vomiting since yesterday lower abdominal pain. Abdominal pain is in the lower abdominal region mostly in the right side however she does have some mid periumbilical pain pain is intermittent she has had several episodes of nonbloody nonbilious emesis states she ate a lot of food yesterday has passed gas and has had a bowel movement since the onset of her vomiting denies vertigo no fevers but did feel chills does have a history of being COVID positive in October of this year denies any chest pain but was feeling slightly short of breath last night Denies any urinary symptoms. - Physicial Exam PE: 01/12/20 17:57 Awake alert no acute distress lungs are clear bilaterally heart is regular 30 murmurs or gallops abdomen is soft there is right lower quadrant and suprapubic tenderness as well as periumbilical tenderness no rebound no guarding no CVA tenderness extremities are warm well perfused there is no noted peripheral edema patient is awake alert and oriented x3 skin is warm and dry - Medical Decision Making 01/12/20 17:57 44-year-old female history of prior multiple abdominal surgeries and subsequent small bowel obstructions here today with nausea vomiting abdominal pain tenderness right lower quadrant and mid abdominal pain on exam differential includes small bowel obstruction appendicitis UTI pyelonephritis ovarian pathology plan CT abdomen and pelvis CBC CMP lipase UA UCG will treat with antiemetics and IV hydration reassess Discharge - Discharge Information Problems reviewed: Yes Clinical Impression/Diagnosis: Abdominal pain - Follow up/Referral Referrals: Niki Deleon MD [Primary Care Provider] - - Patient Discharge Instructions - Post Discharge Activity
[2020-01-12] MEDS ORDERED: morphine SULFATE 4 MG/ML VIAL IVPUSH ONE (18:09)
[2020-01-12] MEDS ORDERED: morphine SULFATE 4 MG/ML VIAL ONE (18:10)
--- NOTE | 2020-01-12 18:26 | PDOC ---
History of Present Illness - General Chief Complaint: Pain Stated Complaint: ABDOMINAL PAIN Time Seen by Provider: 01/12/20 17:16 - History of Present Illness Initial Comments: 44 YOF presents with abdominal pain and vomiting of one day duration. Patient reports that last night she began to experience intense 10/10 abdominal pain across the bottom 2 quadrants of her abdomen, sharp in quality, nothing makes better or worse, took tylenol without relief. She reports that she has been persistently vomiting since the onset of her symptoms. Denies change in bowel or urinary habits. Her last bowel movement was 1 hour prior to arrival. She denies blood in her vomit. She denies blood in her stool or urine. She denies CP, SOB, fever or chills. Constitutional: No Weight Change, No Fever, No Chills, No Night Sweats, No Fatigue, No Malaise ENT/Mouth: No Hearing Changes, No Ear Pain, No Nasal Congestion, No Sinus Pain, No Hoarseness, No sore throat, No Rhinorrhea, No Swallowing Difficulty Eyes: No Eye Pain, No Swelling, No Redness, No Foreign Body, No Discharge, No Vision Changes Cardiovascular: No Chest Pain, No SOB, No PND, No Dyspnea on Exertion, No Orthopnea, No Claudication, No Edema, No Palpitations Respiratory: No Cough, No Sputum, No Wheezing, No Smoke Exposure, No Dyspnea Gastrointestinal: No Constipation, No Heartburn, No Anorexia, No Dysphagia, No Hematochezia, No Melena, No Flatulence, No Jaundice Genitourinary: No Dysmenorrhea, No DUB, No Dyspareunia, No Dysuria, No Urinary Frequency, No Hematuria, No Urinary Incontinence, No Urgency, No Flank Pain, No Urinary Flow Changes, No Hesitancy Musculoskeletal: No Arthralgias, No Myalgias, No Joint Swelling, No Joint Stiffness, No Back Pain, No Neck Pain, No Injury History Skin: No Skin Lesions, No Pruritis, No Hair Changes, No Breast/Skin Changes, No Nipple Discharge Neuro: No Weakness, No Numbness, No Paresthesias, No Loss of Consciousness, No Syncope, No Dizziness, No Headache, No Coordination Changes, No Recent Falls Psych: No Anxiety/Panic, No Depression, No Insomnia, No Personality Changes, No Delusions, No Rumination, No SI/HI/AH/VH, No Social Issues, No Memory Changes, No Violence/Abuse Hx., No Eating Concerns Heme/Lymph: No Bruising, No Bleeding, No Transfusions History, No Lymphadenopathy Endocrine: No Polyuria, No Polydipsia, No Temperature Intolerance Past History - Medical History Allergies/Adverse Reactions: Allergies Allergy/AdvReac Type Severity Reaction Status Date / Time No Known Drug Allergies Allergy Verified 01/12/20 17:54 Home Medications: Ambulatory Orders Amlodipine Besylate [Norvasc -] 5 mg PO DAILY 01/12/20 Anemia: No Asthma: No Cancer: No Cardiac Disorders: No CVA: No COPD: No CHF: No DVT: No Dementia: No Diabetes: No GI Disorders: Yes (fistula SBO) Disorders: No HTN: No Hypercholesterolemia: No Liver Disease: No Seizures: No Thyroid Disease: No - Surgical History Abdominal Surgery: Yes (ECTOPIC PREG) Appendectomy: No Cardiac Surgery: No Cholecystectomy: No Lung Surgery: No Neurologic Surgery: No Orthopedic Surgery: No - Reproductive History Is Patient Now?: No (#): 4 Para: 1 Spontaneous : 3 - Immunization History Immunization Up to Date: Yes - Psycho-Social/Smoking History Smoking Status: No Smoking History: Never smoked Have you smoked in the past 12 months: No Number of Cigarettes Smoked Daily: 0 Cigars Per Day: 0 - Substance Abuse Hx (Audit-C & DAST Scrn) How often the patient has a drink containing alcohol: Never Score: In Men: 4 or > Positive; In Women: 3 or > Positive: 0 Screen Result (Pos requires Nsg. Audit-10AR): Negative In the last yr the pt used illegal drug/Rx for NonMed reason: No Score: Yes response is considered Positive: 0 Screen Result (Positive result requires Nsg. DAST-10): Negative *Physical Exam - Vital Signs Last Vital Signs Temp Pulse Resp BP Pulse Ox 99.2 F 106 H 18 151/85 99 01/12/20 17:20 01/12/20 17:20 01/12/20 17:20 01/12/20 17:20 01/12/20 17:20 - Physical Exam General Appearance: Yes: Nourished, Apparent Distress HEENT: positive: EOMI, ALVINO, Normal ENT Inspection, Normal Voice Neck: positive: Trachea midline, Normal Thyroid Respiratory/Chest: positive: Lungs Clear, Normal Breath Sounds Cardiovascular: positive: Regular Rhythm, Regular Rate, S1, S2 Gastrointestinal/Abdominal: positive: Normal Bowel Sounds, Tender, Soft, Guarding, Tenderness Musculoskeletal: positive: Normal Inspection, CVA Tenderness Extremity: positive: Normal Capillary Refill, Normal Inspection, Normal Range of Motion Integumentary: positive: Normal Color, Dry, Warm Neurologic: positive: senior hr generalist II-XII NML intact, Fully Oriented, Alert, Normal Mood/Affect, Normal Response, Motor Strength / ED Treatment Course - LABORATORY CBC & Chemistry Diagram: 01/12/20 17:50 01/12/20 17:50 - RADIOLOGY Radiology Studies Ordered: Category Date Time Status ABDOMEN & PELVIS CT W/O CONTR [CT] Stat CT Scan 01/12/20 17:26 Ordered CHEST PA & LAT [RAD] Stat Radiology 01/12/20 17:27 Ordered - Medications Given in the ED: ED Medications Discontinued Medications Generic Name Dose Route Start Last Admin Trade Name Freq PRN Reason Stop Dose Admin Morphine Sulfate 4 mg 01/12/20 18:09 01/12/20 18:16 Morphine Sulfate IVPUSH 01/12/20 18:10 4 mg ONCE ONE Administration Ondansetron HCl 4 mg 01/12/20 17:33 01/12/20 18:02 Zofran Injection IVPUSH 01/12/20 17:34 4 mg ONCE ONE Administration Sodium Chloride 1,000 ml 01/12/20 17:34 01/12/20 18:03 Normal Saline - IV 01/12/20 17:35 1,000 ml ONCE ONE Administration Medical Decision Making - Medical Decision Making 44 YOF presents with abdominal pain and vomiting of one day duration. Patient reports that last night she began to experience intense 10/10 abdominal pain across the bottom 2 quadrants of her abdomen, sharp in quality, nothing makes better or worse, took tylenol without relief. She reports that she has been persistently vomiting since the onset of her symptoms. Denies change in bowel or urinary habits. Her last bowel movement was 1 hour prior to arrival. She denies blood in her vomit. She denies blood in her stool or urine. She denies CP, SOB, fever or chills. Vitals wnl on arrival. Physical exam reveals ttp in abdomen with greatest in RLQ. ddx: SBO, mesenteric ischemia, pancreatitis, cholecystitis, diverticulitis. plan: EKG, CT abdomen and pelvis w/ contrast, CBC, CMP, lipase, lactate, CXR. reassess: CT reveals dilation of small bowel and transition point suggestive of ileus vs partial obstruction. Will make patient NPO and admit to medicine. dispo: admit to medicine 01/12/20 21:34 Discharge - Discharge Information Problems reviewed: Yes Clinical Impression/Diagnosis: Abdominal pain - Follow up/Referral Referrals: Niki Deleon MD [Primary Care Provider] - - Patient Discharge Instructions - Post Discharge Activity
[2020-01-12 18:34] LABS: BASO % 0.5 % (0-2.0); EOS % 0.5 % (0-4.5); HEMATOCRIT 34.8 % (32.4-45.2); HEMOGLOBIN 11.7 GM/dL (10.7-15.3); LYMPH % 11.1 % (8-40); MCH 28.5 pg (25.7-33.7); MCHC 33.7 g/dl (32.0-36.0); MEAN CELL VOLUME 84.8 fl (80-96); MEAN PLT VOLUME 8.1 fl (7.5-11.1); MONO % 5.3 % (3.8-10.2); NEUT % 82.6 % (42.8-82.8); PLATELET COUNT 335 K/MM3 (134-434); RDW 14.5 % (11.6-15.6); WHITE BLOOD COUNT 11.8 K/mm3 (4.0-10.0)
[2020-01-12 18:45] LABS: ALBUMIN 4.2 g/dl (3.4-5.0); ALK PHOS 76 U/L (45-117); ANION GAP 10 MMOL/L (8-16); BILIRUBIN,TOTAL 0.5 mg/dL (0.2-1); BLOOD UREA NITROGEN 9.2 mg/dL (7-18); CALCIUM 9.2 mg/dL (8.5-10.1); CHLORIDE 106 mmol/L (98-107); CO2 22 mmol/L (21-32); CREATININE 0.7 mg/dL (0.55-1.3); GLUCOSE,RANDOM 112 mg/dL (74-106); LIPASE 88 U/L (73-393); SGOT/AST 15 U/L (15-37); SGPT/ALT 29 U/L (13-61); SODIUM 138 mmol/L (136-145); TOT PROT 7.7 g/dl (6.4-8.2)
[2020-01-12 19:16] LABS: PH,URINE 7.5 (5.0-8.0); URINE APPEARANCE CLEAR; URINE BILIRUBIN NEGATIVE (NEGATIVE); URINE COLOR YELLOW; URINE GLUCOSE (UA) NEGATIVE (NEGATIVE); URINE KETONE 1+ (NEGATIVE); URINE LEUK ESTERASE NEGATIVE (NEGATIVE); URINE NITRITE NEGATIVE (NEGATIVE); URINE PROTEIN NEGATIVE (NEGATIVE); URINE UROBILINOGEN 0.2 mg/dL (0.2-1.0)
--- NOTE | 2020-01-12 22:17 | HP ---
Admitting History and Physical - Primary Care Physician PCP: Niki Deleon - Admission Chief Complaint: Abdominal Pain, Nausea, Vomiting History of Present Illness: This is a 44 y/o female with a PMHx of SBO, multiple abdominal surgeries, COVID + (10/2019). Who presents to the ED with nausea, NBNB vomiting, abdominal pain x 1 day. patient describes the pain as sharp and intermittent with SOB. Patient reports having a loose BM today. Patient denies fever, chills, cough, dizziness, CP, palpitations, constipation, hematochezia, melena, hematuria, dysuria. Patient denies sick contacts or recent travel. 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) Reproductive: Yes: Ectopic ...LMP: 12/25/19 ...: No - Past Surgical History Past Surgical History: Yes: Additional Past Surgical History: intestinal resection - Smoking History Smoking history: Never smoked Have you smoked in the past 12 months: No Aproximately how many cigarettes per day: 0 - Alcohol/Substance Use Hx Alcohol Use: No History of Substance Use: reports: None - Social History Usual Living Arrangement: Yes: With Spouse, With Child ADL: Independent Occupation: Employed- [employer] History of Recent Travel: No Home Medications - Allergies Allergies/Adverse Reactions: Allergies Allergy/AdvReac Type Severity Reaction Status Date / Time No Known Drug Allergies Allergy Verified 01/12/20 17:54 - Home Medications Home Medications: Ambulatory Orders Amlodipine Besylate [Norvasc -] 5 mg PO DAILY 01/12/20 Family Medical History Family History: As Documented Family Hx Coronary Artery Disease: Mother (HTN) Family Hx Diabetes: Father Family Hx Renal Disease: Mother (ESRD) Review of Systems - Review of Systems Constitutional: reports: Loss of Appetite Eyes: reports: No Symptoms HENT: reports: No Symptoms Neck: reports: No Symptoms Cardiovascular: reports: Shortness of Breath Respiratory: reports: SOB Gastrointestinal: reports: Abdominal Pain, Nausea, Vomiting Genitourinary: reports: No Symptoms Breasts: reports: No Symptoms Reported Musculoskeletal: reports: No Symptoms Integumentary: reports: No Symptoms Neurological: reports: No Symptoms Endocrine: reports: No Symptoms Hematology/Lymphatic: reports: No Symptoms Psychiatric: reports: No Symptoms Pain Intensity: 6 Physical Examination Vital Signs: Vital Signs Temperature 98.4 F 01/12/20 19:52 Pulse Rate 93 H 01/12/20 19:52 Respiratory Rate 16 01/12/20 19:52 Blood Pressure 124/82 01/12/20 19:52 O2 Sat by Pulse Oximetry (%) 98 01/12/20 19:52 Constitutional: Yes: No Distress, Calm Eyes: Yes: WNL, Conjunctiva Clear, EOM Intact, PERRL HENT: Yes: WNL, Atraumatic, Normocephalic Neck: Yes: WNL, Supple, Trachea Midline Cardiovascular: Yes: WNL, Regular Rate and Rhythm, S1, S2 Respiratory: Yes: WNL, Regular, CTA Bilaterally Gastrointestinal: Yes: Soft, Hypoactive Bowel Sounds, Tenderness, Epigastrium ...Rectal Exam: Yes: Deferred Renal/: Yes: WNL Breast(s): Yes: WNL Musculoskeletal: Yes: WNL Extremities: Yes: WNL Edema: No Peripheral Pulses WNL: Yes Neurological: Yes: WNL, Alert, Oriented, Cran Nerves II-XII Intact ...Motor Strength: WNL Psychiatric: Yes: WNL, Alert, Oriented Labs: CBC, BMP 01/12/20 17:50 01/12/20 17:50 Laboratory Results - last 24 hr 01/12/20 01/12/20 01/12/20 17:50 17:50 17:50 WBC 11.8 H RBC 4.10 Hgb 11.7 Hct 34.8 MCV 84.8 MCH 28.5 MCHC 33.7 RDW 14.5 Plt Count 335 MPV 8.1 Absolute Neuts (auto) 9.8 H Neutrophils % 82.6 D Lymphocytes % 11.1 D Monocytes % 5.3 Eosinophils % 0.5 D Basophils % 0.5 Nucleated RBC % 0 Sodium 138 Potassium 4.0 Chloride 106 Carbon Dioxide 22 Anion Gap 10 BUN 9.2 Creatinine 0.7 Est GFR (CKD-EPI)AfAm 121.27 Est GFR (CKD-EPI)NonAf 104.64 Random Glucose 112 H Lactic Acid 1.8 Calcium 9.2 Total Bilirubin 0.5 AST 15 ALT 29 Alkaline Phosphatase 76 Total Protein 7.7 Albumin 4.2 Lipase 88 Beta HCG, Quant < 1.0 Urine Color Urine Appearance Urine pH Ur Specific [place] Urine Protein Urine Glucose (UA) Urine Ketones Urine Blood Urine Nitrite Urine Bilirubin Urine Urobilinogen Ur Leukocyte Esterase 01/12/20 01/13/20 01/13/20 19:10 06:30 06:30 WBC 8.9 RBC 3.75 Hgb 10.7 Hct 31.9 L MCV 85.3 MCH 28.5 MCHC 33.4 RDW 14.7 Plt Count 291 MPV 7.8 Absolute Neuts (auto) 5.7 Neutrophils % 63.9 D Lymphocytes % 24.6 D Monocytes % 8.1 Eosinophils % 2.7 D Basophils % 0.7 Nucleated RBC % 0 Sodium 140 Potassium 3.4 L Chloride 107 Carbon Dioxide 26 Anion Gap 7 L BUN 4.6 L Creatinine 0.4 L Est GFR (CKD-EPI)AfAm 145.79 Est GFR (CKD-EPI)NonAf 125.79 Random Glucose 101 Lactic Acid Calcium 8.1 L Total Bilirubin 0.6 AST 14 L ALT 23 Alkaline Phosphatase 58 Total Protein 6.1 L Albumin 3.2 L Lipase Beta HCG, Quant Urine Color Yellow Urine Appearance Clear Urine pH 7.5 D Ur Specific [place] 1.008 L Urine Protein Negative Urine Glucose (UA) Negative Urine Ketones 1+ H Urine Blood Negative Urine Nitrite Negative Urine Bilirubin Negative Urine Urobilinogen 0.2 Ur Leukocyte Esterase Negative Intake & Output 01/10/20 01/11/20 01/12/20 01/13/20 23:59 23:59 23:59 23:59 Intake Total 600 Balance 600 Weight 64.274 kg Current Medications Generic Name Dose Route Start Last Admin Trade Name Freq PRN Reason Stop Dose Admin Acetaminophen 1,000 mg 01/12/20 22:20 01/13/20 02:53 Ofirmev Injection - IVPB 01/13/20 22:21 1,000 mg Q6H PRN Administration PAIN LEVEL 6-10 Dextrose/Sodium Chloride 1,000 mls @ 100 mls/hr 01/12/20 22:30 01/13/20 02:57 D5-1/2ns - IV 100 mls/hr ASDIR KATELYNN Administration Ondansetron HCl 4 mg 01/12/20 22:21 Zofran Injection IVPUSH Q6H PRN NAUSEA AND/OR VOMITING Imaging - Results Chest X-ray: Image Reviewed Cat Scan: Report Reviewed, Image Reviewed Problem List - Problems (1) Partial bowel obstruction Assessment/Plan: CTAP- dilation small bowel loops, ileus vs partial obstruction, 3.5x 2.4cm right adnexal cyst +leukocytosis Appreciate Surgical consult- per ED resident aware NGT- pt adamantly refused NPO IVF Monitor CBC, CMP Ofirmev, Zofran prn Code(s): K56.600 - PARTIAL INTESTINAL OBSTRUCTION, UNSPECIFIED TO CAUSE (2) Abdominal pain Assessment/Plan: see above Code(s): R10.9 - UNSPECIFIED ABDOMINAL PAIN (3) Nausea and vomiting Assessment/Plan: Likely due to Partial SBO Zofran prn Monitor CMP Continue IVF Code(s): R11.2 - NAUSEA WITH VOMITING, UNSPECIFIED Qualifiers: Vomiting type: unspecified Vomiting Intractability: non-intractable Qualified Code(s): R11.2 - Nausea with vomiting, unspecified (4) Encounter for screening laboratory testing for COVID-19 virus Assessment/Plan: Low Risk COVID PCR-pending Isolation Precautions Code(s): Z11.59 - ENCOUNTER FOR SCREENING FOR OTHER VIRAL DISEASES Assessment/Plan his is a 44 y/o female with a PMHx of SBO, multiple abdominal surgeries, COVID + (10/2019). Admitted to [facility] for Acute Pancreatitis for further evaluation of their emergent condition. Plan: See Problem List FEN D50.45%NS@100ml/hr Replete lytes prn NPO DVT ppx OOB SCDs Heparin SQ Dispo: Requires Inpatient Care Visit type - Emergency Visit Emergency Visit: Yes ED Registration Date: 01/12/20 Care time: The patient presented to the Emergency Department on the above date and was hospitalized for further evaluation of their emergent condition. - New Patient This patient is new to me today: Yes Date on this admission: 01/12/20 - Critical Care Critical Care patient: No
[2020-01-12] MEDS ORDERED: ACETAMINOPHEN 1000 MG/100 ML VIAL (NON FORMULARY) IVPB PRN (22:20)
[2020-01-12] MEDS: DEXTROSE 5%-0.45% SALINE 1,000 ML IV SCH (23:10)
[2020-01-13 02:17] VITALS: BMI 26.7
[2020-01-13] MEDS: DEXTROSE 5%-0.45% SALINE 1,000 ML IV SCH (02:57)
[2020-01-13 07:17] LABS: BASO % 0.7 % (0-2.0); EOS % 2.7 % (0-4.5); HEMATOCRIT 31.9 % (32.4-45.2); HEMOGLOBIN 10.7 GM/dL (10.7-15.3); LYMPH % 24.6 % (8-40); MCH 28.5 pg (25.7-33.7); MCHC 33.4 g/dl (32.0-36.0); MEAN CELL VOLUME 85.3 fl (80-96); MEAN PLT VOLUME 7.8 fl (7.5-11.1); MONO % 8.1 % (3.8-10.2); NEUT % 63.9 % (42.8-82.8); PLATELET COUNT 291 K/MM3 (134-434); RBC 3.75 M/mm3 (3.60-5.2); RDW 14.7 % (11.6-15.6); WHITE BLOOD COUNT 8.9 K/mm3 (4.0-10.0)
[2020-01-13 07:44] LABS: ALBUMIN 3.2 g/dl (3.4-5.0); BILIRUBIN,TOTAL 0.6 mg/dL (0.2-1); BLOOD UREA NITROGEN 4.6 mg/dL (7-18); CALCIUM 8.1 mg/dL (8.5-10.1); CREATININE 0.4 mg/dL (0.55-1.3); POTASSIUM 3.4 mmol/L (3.5-5.1); TOT PROT 6.1 g/dl (6.4-8.2)
[2020-01-13] MEDS: ONDANSETRON 4 MG/2 ML VIAL IVPUSH PRN (09:32)
[2020-01-13] MEDS: HEPARIN NA (PORCINE) 5,000 UNITS/ML 1ML VIAL SQ SCH ×3 (09:32→21:32)
--- NOTE | 2020-01-13 09:52 | CONSULT ---
Consult - text type - Consultation Consultation Note: 44 yr old female with history of SBO presents with recurrent epidsode of partial SBO clinically resolving with resolution of pain Recommend Xrays today and if improved consider clear liquid diet
--- NOTE | 2020-01-13 11:16 | CONSULT ---
- Consultation REQUESTING PROVIDER: CONSULT REQUEST: We have been asked to surgically evaluate this patient for SBO/Ileus PCP:Niki Deleon HISTORY OF PRESENT ILLNESS: 44yo F h/o SBO, was consulted to surgery for evaluation. Pt states yesterday she developed abd pain associated with nausea and vomiting. Pt went to the ED for evaluation. Pt states she has history of multiple SBOs in the past the last being last year which was treated conservatively. Pt also had surgery for obstruction several years ago in the [place]. Pt states today that abd pain is much improved and that her nausea and vomiting has resolved. Pt states she is hungry and wants to eat. PMHx: HTN Home Medications Medication Instructions Recorded Amlodipine Besylate [Norvasc -] 5 mg PO DAILY 01/12/20 Allergies Allergy/AdvReac Type Severity Reaction Status Date / Time No Known Drug Allergies Allergy Verified 01/12/20 17:54 REVIEW OF SYSTEMS: CONSTITUTIONAL: Absent: fever, chills, diaphoresis, generalized weakness, malaise, loss of appetite, weight change CARDIOVASCULAR: Absent: chest pain, syncope, palpitations, irregular heart rate, lightheade dness, peripheral edema RESPIRATORY: Absent: cough, shortness of breath, dyspnea with exertion, wheezing, stridor, hemoptysis GASTROINTESTINAL: Absent: abdominal pain, abdominal distension, nausea, vomiting, diarrhea, constipation, melena, hematochezia PHYSICAL EXAM: GENERAL: Awake, alert, and fully oriented, in no acute distress. HEAD: Normal with no signs of trauma. EYES: PERRL, sclera anicteric, conjunctiva clear. NECK: Normal ROM, supple without lymphadenopathy, JVD, or masses. LUNGS: breathing comfortably No accessory muscle use. HEART: Regular rate and rhythm. ABDOMEN: Soft, nontender, not distended, no guarding, no rebound, no masses. No organomegaly. MUSCULOSKELETAL: Normal ROM at all joints. No bony deformities or tenderness. No CVA tenderness. UPPER EXTREMITIES: warm, well-perfused. No cyanosis. No peripheral edema. LOWER EXTREMITIES: warm, well-perfused. No calf tenderness. No peripheral edema. NEUROLOGICAL: Normal speech, gait not observed. PSYCH: Cooperative. Good eye contact. Appropriate mood and affect. SKIN: Warm, dry, normal turgor, no rashes or lesions noted. Vital Signs Temperature 98.3 F 01/13/20 00:23 Pulse Rate 98 H 01/13/20 00:23 Respiratory Rate 18 01/13/20 00:23 Blood Pressure 136/92 01/13/20 00:23 O2 Sat by Pulse Oximetry (%) 99 01/13/20 00:23 Lab Results WBC 8.9 K/mm3 (4.0-10.0) 01/13/20 06:30 RBC 3.75 M/mm3 (3.60-5.2) 01/13/20 06:30 Hgb 10.7 GM/dL (10.7-15.3) 01/13/20 06:30 Hct 31.9 % (32.4-45.2) L 01/13/20 06:30 MCV 85.3 fl (80-96) 01/13/20 06:30 MCHC 33.4 g/dl (32.0-36.0) 01/13/20 06:30 RDW 14.7 % (11.6-15.6) 01/13/20 06:30 Plt Count 291 K/MM3 (134-434) 01/13/20 06:30 Sodium 140 mmol/L (136-145) 01/13/20 06:30 Potassium 3.4 mmol/L (3.5-5.1) L 01/13/20 06:30 Chloride 107 mmol/L (98-107) 01/13/20 06:30 Carbon Dioxide 26 mmol/L (21-32) 01/13/20 06:30 Anion Gap 7 MMOL/L (8-16) L 01/13/20 06:30 BUN 4.6 mg/dL (7-18) L 01/13/20 06:30 Creatinine 0.4 mg/dL (0.55-1.3) L 01/13/20 06:30 Random Glucose 101 mg/dL (74-106) 01/13/20 06:30 Calcium 8.1 mg/dL (8.5-10.1) L 01/13/20 06:30 CTAP- dilation small bowel loops, ileus vs partial obstruction, 3.5x 2.4cm right adnexal cyst Problem List - Problems (1) Partial bowel obstruction Assessment/Plan: Plan -pt clinically looks like sbo is resolving, will get abd x-ray if ok, will start clears -continue NPO/IVF for now -OOB/ambulate Pt discussed with Dr. Altamirano who agrees with plan Code(s): K56.600 - PARTIAL INTESTINAL OBSTRUCTION, UNSPECIFIED TO CAUSE
--- NOTE | 2020-01-13 11:23 | PN ---
Progress Note (short form) - Note Progress Note: events noted felt nauseous this AM-- received zofran and is better Passing flatus decreased abdominal pain Vital Signs - 24 hr 01/12/20 01/12/20 01/12/20 17:20 19:52 21:02 Temperature 99.2 F 98.4 F 98.5 F Pulse Rate 106 H 99 H Pulse Rate [ 93 H Right Radial] Respiratory 18 16 20 Rate Blood Pressure 151/85 145/92 Blood Pressure 124/82 [Left Arm] O2 Sat by Pulse 99 98 98 Oximetry (%) 01/13/20 00:23 Temperature 98.3 F Pulse Rate Pulse Rate [ 98 H Right Radial] Respiratory 18 Rate Blood Pressure Blood Pressure 136/92 [Left Arm] O2 Sat by Pulse 99 Oximetry (%) Current Medications Generic Name Dose Route Start Last Admin Trade Name Freq PRN Reason Stop Dose Admin Acetaminophen 1,000 mg 01/12/20 22:20 01/13/20 02:53 Ofirmev Injection - IVPB 01/13/20 22:21 1,000 mg Q6H PRN Administration PAIN LEVEL 6-10 Heparin Sodium (Porcine) 5,000 unit 01/13/20 10:00 01/13/20 09:32 Heparin - SQ Not Given BID KATELYNN Dextrose/Sodium Chloride 1,000 mls @ 100 mls/hr 01/12/20 22:30 01/13/20 02:57 D5-1/2ns - IV 100 mls/hr ASDIR KATELYNN Administration Ondansetron HCl 4 mg 01/12/20 22:21 01/13/20 09:32 Zofran Injection IVPUSH 4 mg Q6H PRN Administration NAUSEA AND/OR VOMITING Laboratory Results - last 24 hr 01/12/20 01/12/20 01/12/20 17:50 17:50 17:50 WBC 11.8 H RBC 4.10 Hgb 11.7 Hct 34.8 MCV 84.8 MCH 28.5 MCHC 33.7 RDW 14.5 Plt Count 335 MPV 8.1 Absolute Neuts (auto) 9.8 H Neutrophils % 82.6 D Lymphocytes % 11.1 D Monocytes % 5.3 Eosinophils % 0.5 D Basophils % 0.5 Nucleated RBC % 0 Sodium 138 Potassium 4.0 Chloride 106 Carbon Dioxide 22 Anion Gap 10 BUN 9.2 Creatinine 0.7 Est GFR (CKD-EPI)AfAm 121.27 Est GFR (CKD-EPI)NonAf 104.64 Random Glucose 112 H Lactic Acid 1.8 Calcium 9.2 Total Bilirubin 0.5 AST 15 ALT 29 Alkaline Phosphatase 76 Total Protein 7.7 Albumin 4.2 Lipase 88 Beta HCG, Quant < 1.0 Urine Color Urine Appearance Urine pH Ur Specific [place] Urine Protein Urine Glucose (UA) Urine Ketones Urine Blood Urine Nitrite Urine Bilirubin Urine Urobilinogen Ur Leukocyte Esterase 01/12/20 01/13/20 01/13/20 19:10 06:30 06:30 WBC 8.9 RBC 3.75 Hgb 10.7 Hct 31.9 L MCV 85.3 MCH 28.5 MCHC 33.4 RDW 14.7 Plt Count 291 MPV 7.8 Absolute Neuts (auto) 5.7 Neutrophils % 63.9 D Lymphocytes % 24.6 D Monocytes % 8.1 Eosinophils % 2.7 D Basophils % 0.7 Nucleated RBC % 0 Sodium 140 Potassium 3.4 L Chloride 107 Carbon Dioxide 26 Anion Gap 7 L BUN 4.6 L Creatinine 0.4 L Est GFR (CKD-EPI)AfAm 145.79 Est GFR (CKD-EPI)NonAf 125.79 Random Glucose 101 Lactic Acid Calcium 8.1 L Total Bilirubin 0.6 AST 14 L ALT 23 Alkaline Phosphatase 58 Total Protein 6.1 L Albumin 3.2 L Lipase Beta HCG, Quant Urine Color Yellow Urine Appearance Clear Urine pH 7.5 D Ur Specific [place] 1.008 L Urine Protein Negative Urine Glucose (UA) Negative Urine Ketones 1+ H Urine Blood Negative Urine Nitrite Negative Urine Bilirubin Negative Urine Urobilinogen 0.2 Ur Leukocyte Esterase Negative S1 S2 RRR Lungs clear Abd-soft, NT, ND, BS+ No edema PLAN clinically appears to have resolved SBO iv fluids replace K+ xray abd done OOB Problem List - Problems (1) HTN (hypertension) Code(s): I10 - ESSENTIAL (PRIMARY) HYPERTENSION (2) Abdominal pain Code(s): R10.9 - UNSPECIFIED ABDOMINAL PAIN (3) Encounter for screening laboratory testing for COVID-19 virus Code(s): Z11.59 - ENCOUNTER FOR SCREENING FOR OTHER VIRAL DISEASES (4) Partial bowel obstruction Code(s): K56.600 - PARTIAL INTESTINAL OBSTRUCTION, UNSPECIFIED TO CAUSE
[2020-01-13] MEDS ORDERED: POTASSIUM CHLORIDE ORAL LIQUID 20 MEQ/15 ML PO ONE (11:24)
[2020-01-13] MEDS ORDERED: ACETAMINOPHEN 325 MG TABLET (FP) PO PRN (11:28)
[2020-01-13] MEDS ORDERED: amLODIPine BESYLATE 5 MG TABLET (FP) PO SCH (11:30)
[2020-01-13] MEDS: D5-1/2NS+20 MEQ KCL - 20 MEQ/1,000 ML INFUS.BAG IV SCH ×2 (11:46→21:31)
[2020-01-13] MEDS: amLODIPine BESYLATE 5 MG TABLET (FP) PO SCH (11:52)
--- NOTE | 2020-01-13 16:56 | EKG ---
Test Reason : Blood Pressure : / mmHG Vent. Rate : 097 BPM Atrial Rate : 097 BPM P-R Int : 158 ms QRS Dur : 078 ms QT Int : 364 ms P-R-T Axes : 045 014 004 degrees QTc Int : 462 ms NORMAL SINUS RHYTHM NORMAL ECG WHEN COMPARED WITH ECG OF 15-DEC-2018 06:59, NO SIGNIFICANT CHANGE WAS FOUND Confirmed by GISELLE LANGE MD ([id number]) on 01/13/2020 4:56:23 PM Referred By: Confirmed By:GISELLE LANGE MD
[2020-01-13] MEDS: ACETAMINOPHEN 325 MG TABLET (FP) PO PRN (17:01)
[2020-01-14 08:26] LABS: CALCIUM 8.1 mg/dL (8.5-10.1); CREATININE 0.5 mg/dL (0.55-1.3)
[2020-01-14] MEDS: HEPARIN NA (PORCINE) 5,000 UNITS/ML 1ML VIAL SQ SCH ×2 (08:58→09:00)
[2020-01-14] MEDS: ONDANSETRON 4 MG/2 ML VIAL IVPUSH PRN (08:59)
[2020-01-14] MEDS: amLODIPine BESYLATE 5 MG TABLET (FP) PO SCH (08:59)
[2020-01-14] MEDS: ACETAMINOPHEN 325 MG TABLET (FP) PO PRN (08:59)
--- NOTE | 2020-01-14 09:55 | PN ---
Progress Note (short form) - Note Progress Note: SURGERY 44yo F h/o SBO, pt seen and examined at bedside. Pt states her pain has completely resolved. Denies n/v, fever, chills. Pt tolerating clears. Last Vital Signs Temp Pulse Resp BP Pulse Ox 98.2 F 88 20 122/78 96 01/14/20 05:00 01/14/20 05:00 01/14/20 05:00 01/14/20 05:00 01/14/20 05:00 CBC, BMP 01/13/20 06:30 01/14/20 07:00 PE: Gen: A&OX 3 Resp; breathing comfortably Abd; soft, nontender, nondistended Problem List - Problems (1) Partial bowel obstruction Assessment/Plan: Plan -pt clinically looks like sbo is resolving, will adv diet -pt cleared for discharge from surgery standpoint, please call surgery if any acute changes Pt discussed with Dr. Altamirano who agrees with plan Code(s): K56.600 - PARTIAL INTESTINAL OBSTRUCTION, UNSPECIFIED TO CAUSE
--- NOTE | 2020-01-14 12:43 | DS ---
Physical Examination Vital Signs: Vital Signs Temperature 98.2 F 01/14/20 05:00 Pulse Rate 88 01/14/20 05:00 Respiratory Rate 20 01/14/20 05:00 Blood Pressure 122/78 01/14/20 05:00 O2 Sat by Pulse Oximetry (%) 96 01/14/20 05:00 Findings/Remarks: Patient feels well no complaints Denies pain and tolerating diet Passing gas Wants to go home afebrile Constitutional: Yes: No Distress Neck: Yes: Supple Cardiovascular: Yes: Regular Rate and Rhythm Respiratory: Yes: CTA Bilaterally Gastrointestinal: Yes: Soft Edema: No Neurological: Yes: Alert Psychiatric: Yes: Alert Labs: CBC, BMP 01/13/20 06:30 01/14/20 07:00 Discharge Summary Problems reviewed: Yes Reason For Visit: INTESTINAL OBSTRUCTION Current Active Problems Abdominal pain (Acute) Encounter for screening laboratory testing for COVID-19 virus (Acute) HTN (hypertension) (Acute) Partial bowel obstruction (Acute) Hospital Course: admitted for small bowel obstruction Managed conservatively Did well resolved small bowel obstruction covid still positive Advised to stay currently quarantine--- till -ve Follow-up next week--- office--- phone call Patient in agreement meds reconciled Discussed with nursing staff also Will discharge home Condition: Stable - Instructions Referrals: Niki Deleon MD [Primary Care Provider] - - Home Medications Comprehensive Discharge Medication List: Ambulatory Orders Amlodipine Besylate [Norvasc -] 5 mg PO DAILY 01/12/20 Acetaminophen [Tylenol .Regular Strength -] 650 mg PO Q6H PRN tablet 01/14/20
[2020-01-14 15:02] VITALS: BP 130/72; PULSE 84; TEMP 98
== END 2020-01-14 15:11 | disposition home or self-care (01) | DRG 247 ==
LOC: JER 17:07 → JERBED 21:02 → J8W 01-13 01:13
PROVIDERS: ADMIT Internal Medicine; ATTEND Internal Medicine
DX: K56.600 Partial intestinal obstruction, unspecified as to cause (principal); R10.9 Unspecified abdominal pain; R11.2 Nausea with vomiting, unspecified; Z11.59 Encounter for screening for other viral diseases; U07.1 COVID-19
CPT/HCPCS: 36415; 71046-TC-FY; 74019-TC-FY; 74177-TC; 80048; 80053; 81003; 83605; 83690; 84702; 85025; 87040; 87086; 87186; 93005; 93010; 99285-25; J0131; J1644; Q9967; U0003

== ENCOUNTER 2021-01-15 11:58 | Emergency (ER) | payer OTHER ==
[2021-01-15 12:12] VITALS: BP 152/81; PULSE 77; TEMP 98.1; BMI 26.9
[2021-01-15] MEDS ORDERED: LIDOCAINE 5% TOPICAL PATCH TP ONE (12:35)
[2021-01-15] MEDS ORDERED: KETOROLAC TROMETHAMINE 30 MG/1 ML VIAL IM ONE (12:35)
[2021-01-15] MEDS ORDERED: predniSONE 20 MG TABLET (UD) PO ONE (12:36)
[2021-01-15] MEDS ORDERED: predniSONE 10 MG TABLET (UD) ONE (12:39)
[2021-01-15] MEDS ORDERED: predniSONE 20 MG TABLET (UD) ONE (12:39)
[2021-01-15] MEDS ORDERED: LIDOCAINE 5% TOPICAL PATCH ONE (12:39)
[2021-01-15] MEDS ORDERED: KETOROLAC TROMETHAMINE 30 MG/1 ML VIAL ONE (12:39)
[2021-01-15] MEDS ORDERED: LIDOCAINE PATCH REMOVAL MC ONE (22:00)
== END 2021-01-15 13:48 | disposition home or self-care (01) ==
LOC: JERFT 11:58
PROC: 3E023GC Introduction of Other Therapeutic Substance into Muscle, Percutaneous Approach (ICD-10-PCS; principal; 2021-01-15)
DX: M54.32 Sciatica, left side (principal)
CPT/HCPCS: 99284-25

== ENCOUNTER 2022-02-06 19:05 | Emergency (ER) | payer OTHER ==
[2022-02-06 19:14] VITALS: BP 130/81; PULSE 86; RESP 18; TEMP 98; BMI 26.5
[2022-02-06] MEDS ORDERED: IBUPROFEN 600 MG TABLET (FP) PO ONE ×2 (20:08→20:09)
== END 2022-02-06 20:15 | disposition home or self-care (01) ==
LOC: JERFT 19:05
DX: M54.12 Radiculopathy, cervical region (principal); G56.01 Carpal tunnel syndrome, right upper limb
CPT/HCPCS: 99283-25

== ENCOUNTER 2022-08-06 19:21 | Emergency (ER) | payer OTHER ==
[2022-08-06 19:32] VITALS: BP 147/85; PULSE 110; RESP 20; TEMP 98.1; BMI 26.0
[2022-08-06] MEDS ORDERED: CYCLOBENZAPRINE HCL 10 MG TABLET (FP) PO ONE (21:25)
[2022-08-06] MEDS ORDERED: ACETAMINOPHEN 500 MG TABLET (FP) PO ONE (21:25)
[2022-08-06] MEDS ORDERED: KETOROLAC TROMETHAMINE 30 MG/1 ML VIAL IM ONE (21:25)
[2022-08-06] MEDS ORDERED: ACETAMINOPHEN 500 MG TABLET (FP) ONE ×2 (21:26→21:27)
[2022-08-06] MEDS ORDERED: CYCLOBENZAPRINE HCL 10 MG TABLET (FP) ONE (21:26)
[2022-08-06] MEDS ORDERED: KETOROLAC TROMETHAMINE 30 MG/1 ML VIAL ONE (21:26)
== END 2022-08-06 23:21 | disposition home or self-care (01) ==
LOC: JER 19:21
PROC: 3E0233Z Introduction of Anti-inflammatory into Muscle, Percutaneous Approach (ICD-10-PCS; principal; 2022-08-06)
DX: M54.2 Cervicalgia (principal)
CPT/HCPCS: 72125-TC; 99284-25

== ENCOUNTER 2023-06-20 13:02 | Emergency (ER) | payer OTHER ==
[2023-06-20 13:26] VITALS: BP 115/78; PULSE 84; RESP 16; TEMP 98.1; BMI 25.7
[2023-06-20] MEDS ORDERED: IBUPROFEN 600 MG TABLET (FP) PO ONE ×3 (15:05→15:11)
[2023-06-20] MEDS ORDERED: CYCLOBENZAPRINE HCL 10 MG TABLET (FP) PO ONE (15:10)
[2023-06-20] MEDS ORDERED: CYCLOBENZAPRINE HCL 10 MG TABLET (FP) ONE (15:11)
== END 2023-06-20 15:13 | disposition home or self-care (01) ==
LOC: JERFT 13:02
DX: M54.9 Dorsalgia, unspecified (principal); M54.2 Cervicalgia; G44.319 Acute post-traumatic headache, not intractable; S16.1XXA Strain of muscle, fascia and tendon at neck level, initial encounter; S39.012A Strain of muscle, fascia and tendon of lower back, initial encounter; V49.40XA Driver injured in collision with unspecified motor vehicles in traffic accident, initial encounter; Y92.410 Unspecified street and highway as the place of occurrence of the external cause
CPT/HCPCS: 99283-25

== ENCOUNTER 2024-06-11 19:24 | Emergency (ER) | payer BC ==
[2024-06-11 19:32] VITALS: BP 149/85; PULSE 99; RESP 18; TEMP 97.9; BMI 25.4
[2024-06-11] MEDS ORDERED: IBUPROFEN 600 MG TABLET (FP) PO ONE (21:04)
[2024-06-11] MEDS: IBUPROFEN 600 MG TABLET (FP) PO ONE (21:06)
[2024-06-11 21:10] LABS: BASO % 0.9 % (0-2.0); EOS % 4.3 % (0-4.5); HEMATOCRIT 36.1 % (32.4-45.2); HEMOGLOBIN 12.2 GM/dL (10.7-15.3); LYMPH % 34.2 % (8-40); MCH 29.5 pg (25.7-33.7); MCHC 33.8 g/dl (32.0-36.0); MEAN CELL VOLUME 87.2 fl (80-96); MEAN PLT VOLUME 7.5 fl (7.5-11.1); MONO % 6.2 % (3.8-10.2); NEUT % 54.4 % (42.8-82.8); PLATELET COUNT 352 10^3/uL (134-434); RBC 4.14 M/mm3 (3.60-5.2); RDW 13.8 % (11.6-15.6); WHITE BLOOD COUNT 8.7 K/mm3 (4.0-10.0)
[2024-06-11 21:29] LABS: ALBUMIN 3.9 g/dl (3.4-5.0); BLOOD UREA NITROGEN 14.9 mg/dL (7-18); CALCIUM 9.2 mg/dL (8.5-10.1)
[2024-06-11 21:33] LABS: CREATININE 0.8 mg/dL (0.55-1.3)
[2024-06-11 21:34] LABS: BILIRUBIN,TOTAL 0.3 mg/dL (0.2-1); TOT PROT 7.3 g/dl (6.4-8.2)
== END 2024-06-11 23:28 | disposition home or self-care (01) ==
LOC: JER 19:24
DX: S03.01XA Dislocation of jaw, right side, initial encounter (principal); R06.02 Shortness of breath; R00.2 Palpitations; R07.9 Chest pain, unspecified; X58.XXXA Exposure to other specified factors, initial encounter
CPT/HCPCS: 36415; 71046-TC-FY; 80053; 84484; 85025; 93005; 93010; 99285-25

== ENCOUNTER 2024-11-01 08:34 | Emergency (ER) | payer BC ==
[2024-11-01 08:40] VITALS: BP 130/78; PULSE 84; RESP 20; TEMP 97.9; BMI 25.7
[2024-11-01] MEDS ORDERED: IBUPROFEN 100 MG/5 ML UNIT DOSE CUPS ONE (09:08)
[2024-11-01] MEDS ORDERED: DEXAMETHASONE SOD PHOSPHATE 10 MG/1 ML VIAL ONE (09:08)
[2024-11-01] MEDS: DEXAMETHASONE SOD PHOSPHATE 10 MG/1 ML VIAL IM ONE (09:10)
[2024-11-01] MEDS: IBUPROFEN 100 MG/5 ML UNIT DOSE CUPS PO ONE (09:10)
[2024-11-01 10:20] LABS: THROAT:GRP A STREP NOT DETECTED (NOTDETECTED)
== END 2024-11-01 11:04 | disposition home or self-care (01) ==
LOC: JERFT 08:34
PROC: 3E023GC Introduction of Other Therapeutic Substance into Muscle, Percutaneous Approach (ICD-10-PCS; principal; 2024-11-01)
DX: J02.9 Acute pharyngitis, unspecified (principal); R13.10 Dysphagia, unspecified; J04.0 Acute laryngitis; R05.9 Cough, unspecified; R49.0 Dysphonia
CPT/HCPCS: 0241U-QW; 87651; 96372; 99284-25; J1100

== ENCOUNTER 2025-02-10 01:06 | Emergency (ER) | payer BC ==
[2025-02-10 01:14] VITALS: BP 132/78; PULSE 70; RESP 18; TEMP 98.1; BMI 26.0
[2025-02-10] MEDS ORDERED: IBUPROFEN 400 MG TABLET (FP) PO ONE (01:53)
[2025-02-10] MEDS ORDERED: LIDOCAINE 4% PATCH TP ONE (01:53)
[2025-02-10] MEDS: IBUPROFEN 400 MG TABLET (FP) PO ONE (01:59)
[2025-02-10] MEDS: LIDOCAINE 4% PATCH TP ONE (01:59)
[2025-02-10] MEDS ORDERED: LIDOCAINE PATCH REMOVAL MC SCH (22:00)
== END 2025-02-10 02:28 | disposition home or self-care (01) ==
LOC: JER 01:06
DX: R51.9 Headache, unspecified (principal); W22.8XXA Striking against or struck by other objects, initial encounter
CPT/HCPCS: 99283-25